=== PATIENT | female | born 1960 | race Two or more races ===

== ENCOUNTER 2025-07-11 15:50 | Inpatient (IN) | payer MEDICARE, SELFPAY ==
[2025-07-11] VITALS (7 sets, daily range): BP systolic 166–207; BP diastolic 71–98; PULSE 59–81; RESP 18–98; TEMP 36.1–36.9; O2SAT 96–98; BMI 28.3
--- NOTE | 2025-07-11 16:00 | XR_ITS ---
EXAMINATION: AP chest single view TECHNIQUE: Portable sitting AP chest single view Date and time: July 11 0 25, 1641 hours INDICATIONS: Stroke alert today FINDINGS: Normal heart size No aspiration pneumonia Mild vascular congestion. Severe osteopenia IMPRESSION: Mild vascular congestion No aspiration pneumonia
--- NOTE | 2025-07-11 16:00 | EKG_ITS ---
[facility] Test Date: 2025-07-11 Pat Name: DELLA BRADLEY Department: Room: - Gender: Female [employer] Reviewer: : 1960 Requested By: Tara Ruth Order Number: [id number] Reading MD: Tara Ruth Measurements Intervals [place] Rate: 71 P: 25 MI: 164 QRS: -20 QRSD: 116 T: 95 QT: 396 QTc: 431 Interpretive Statements SINUS RHYTHM LEFT VENTRICULAR HYPERTROPHY AND ST-T CHANGE [VOLTAGE CRITERIA PLUS ST/T ABNORMALITY] No previous ECG available for comparison /[id number]/[email or web address]/[id number].pdf
--- NOTE | 2025-07-11 16:01 | EDNOTE_ITS ---
Neuro Symptoms Deficit-RME/HPI General Chief Complaint: Weakness Stated Complaint: BLOOD SUGAR AT HOME 385, LEFT SIDED FACIAL DROOP Time Seen by Provider: 07/11/25 16:01 Arrival date/time: 07/11/25 15:50 RME / HPI RME / HPI Narrative: DR. MANLEY MAIN ED EVALUATION: 65-year-old female presents to the Emergency Department for evaluation of left facial droop. Per daughter, the patient was noted to be drowsy and less respo nsive than usual earlier today. The last known well time is unknown; daughter reports the patient appeared normal earlier in the morning, while the states she woke up with the facial droop. No history of trauma, seizure activity, or headache reported. Related Data Allergies Allergy/AdvReac Type Severity Reaction Status Date / Time No Known Allergies Allergy Verified 07/11/25 15:54 Review of Systems Review of Systems Systems Reviewed: All systems reviewed, normal except as documented Past Medical History Past Medical History CARDIAC: Positive Hypertension ENDOCRINE: Positive Diabetes Mellitus Type 2 Social History SMOKING STATUS: Never smoker SUBSTANCE USE: does not use ALCOHOL: Never ED Exam Narrative Physical exam: GENERAL APPEARANCE: alert and oriented, well-developed, well-nourished, no acute distress; left facial droop present VITALS: All vitals were reviewed and the pulse ox is 96% on room air, which is normal according to my interpretation. HEENT: Normocephalic, atraumatic; pupils equal, round, reactive to light; EOMI; mucous membranes pink, moist; oropharynx clear NECK: Supple LUNGS: CTABL; no wheezes, no rales, no rhonchi HEART: Regular rate, regular rhythm; normal S1, S2; no murmurs ABDOMEN: non distended; normal BS; soft, no tenderness, no guarding, no rebound; no masses, no organomegaly, no hernia BACK: no CVA tenderness EXTREMITIES: atraumatic; no edema NEUROLOGIC: awake; alert and oriented x4; left facial droop present PSYCHIATRIC: appropriate mood and affect SKIN: warm, dry, normal color; no rashes Course Course Course Narrative: 1558: Stroke alert initiated. Orders made at this time are congruent stroke protocol. Quality Measures none Orders Category Date Time Status Bedside Blood Glucose NOW Care 07/11/25 16:00 Completed Crushing Foreman NOW Care 07/11/25 16:00 Active Continuous Pulse Oximetry NOW Care 07/11/25 16:00 Completed EKG (ED ONLY) *Do not use* NOW Care 07/11/25 16:00 Completed In and Out Catheter NEEDED Care 07/11/25 16:00 Active Insert IV NOW Care 07/11/25 16:00 Active MRI Screening NOW Care 07/11/25 16:46 Active NIH Stroke Scale now Care 07/11/25 16:00 Active NPO NOW Care 07/11/25 16:00 Active Nurse Swallow Screen x1 Care 07/11/25 16:00 Active Consult to Neurology / Tele-Neurology Routine Cons 07/11/25 16:[address] angio stroke protocol Stat Exams 07/11/25 16:[address] stroke protocol Stat Exams 07/11/25 16:00 Completed EKG (ED Only) Stat Exams 07/11/25 16:00 Draft MR head/brain wo con Urgent Exams 07/11/25 Ordered XR chest 1V portable Stat Exams 07/11/25 16:00 Taken Alcohol, Blood Medical Stat Lab 07/11/25 16:06 Completed B-Type Natriuretic Peptide Stat Lab 07/11/25 16:06 Completed CBC Stat Lab 07/11/25 16:06 Completed Comprehensive Metabolic Panel Stat Lab 07/11/25 16:06 Completed Drug Screen,Urine Stat Lab 07/11/25 16:41 Completed Magnesium Stat Lab 07/11/25 16:06 Completed Partial Thromboplastin Time Stat Lab 07/11/25 16:06 Completed Prothrombin Time with INR Stat Lab 07/11/25 16:06 Completed Troponin I Stat Lab 07/11/25 16:06 Completed Urinalysis, C/S if Indicated Stat Lab 07/11/25 16:41 Completed Aspirin Med 07/11/25 16:45 Discontinued 325 mg PO X1 ONE Clopidogrel [Plavix] Med 07/11/25 16:45 Discontinued 300 mg PO X1 ONE Oxygen Delivery NOW RT 07/11/25 16:00 Active Vital Signs Vital signs: Vital Signs Pulse Rate 74 07/11/25 16:33 Respiratory Rate 18 07/11/25 16:33 Blood Pressure 207/87 H 07/11/25 16:33 Pulse Oximetry (%) 96 07/11/25 16:33 Oxygen Delivery Method Room Air 07/11/25 16:33 Neuro Symptoms / Deficit MDM Narrative MDM Narrative:: I, Leelee Dao am scribing for and in the presence of Dr. Manley. Patient data External records reviewed:: [facility] previous records Clinical information provided by:: patient and family Social determinants that could affect healthcare access:: none Patient has the following chronic illnesses:: No known PMHx, surgeries, daily medications, or known allergies. How is presenting disease/condition affected by chronic disease/condition?: no chronic disease Evaluation data The following diagnostics were reviewed and interpreted by me:: lab results, radiology exam(s) and EKG tracing(s) Lab and/or radiology exams considered but not ordered:: none Interpretation Summary: Procedure(s): CT stroke protocol Accession Number(s): [id number] cc: Mike Cerrato MD; Tara Manley MD~ Examination: CT brain head without contrast. 2-D sagittal coronal reconstructions Date and time of exam: July 11, 2025, 1610 hours INDICATIONS: Stroke alert, onset focal neurologic deficit including left-sided facial droop unsteadiness and weakness beginning this morning CTDI: vol (mGy): 48.1 DLP: (mGycm): 914 Technique: Multiple CT axial sections of the brain have been obtained, 5 mm slice thickness. Contrast has not been administered. 2-D sagittal, coronal reconstructions have been obtained Low dose protocols were performed. One or more of the following dose reduction techniques were used; automated exposure control, adjustment of the mA and/or KV according to patient size, use of iterative reconstruction technique. Findings: No significant ventricular enlargement. Small bilateral old appearing nonhemorrhagic infarcts in the basal ganglia but clinical correlation advised Intra-axial or extra-axial hemorrhage density is not seen. No mass effect or midline shift Basal cisterns are not remarkable. Fourth ventricle is midline. Cranial vault intact. Impression: Negative for acute hemorrhage, mass effect or midline shift Small bilateral old appearing nonhemorrhagic infarcts in the basal ganglia, but clinical correlation advised As clinically warranted, brain MRI follow-up would best assess for acute ischemic change Dictated By: Mike Cerrato MD Procedure(s): CT angio stroke protocol Accession Number(s): [id number] cc: Mike Cerrato MD; NO PRIMARY/FAMILY,PHYSICIAN; Tara Manley MD~ Examination: CTA carotids with intravenous contrast CTA brain, head with intravenous contrast. 2-D sagittal, coronal reconstructions. 3-D reconstructions. Exam date and time: July 11, 2025, 1639 hours INDICATIONS: Stroke alert, onset focal neurologic deficit today CTDI: vol (mGy) 17.2 DLP: (mGycm) 425 Technique: Multiple CTA axial brain, head carotid images post intravenous contrast injection 75 cc, [id number]. 2-D sagittal, coronal reconstructions. 3-D reconstructions, 3-D post processing including vascular maximum intensity projection images. Low dose protocols were performed. One or more of the following dose reduction techniques were used; automated exposure control, adjustment of the mA and/or KV according to patient size, use of iterative reconstruction technique. Findings: Bilateral subcentimeter thyroid nodules No significant common carotid carotid bifurcation or internal carotid artery stenoses Minimally dominant right vertebral artery in the neck with no critical stenoses Intracranial vertebral arteries basilar artery posterior cerebral branches fill with no large vessel occlusions Petrous juxtasellar and supraclinoid portions internal carotid arteries intact Middle cerebral M1 segments trifurcation vessels and anterior cerebral arteries demonstrate no large vessel occlusions IMPRESSION: No significant neck arterial stenoses No cerebral large vessel arterial occlusions or thrombus Dictated By: Mike Cerrato MD Medications / Prescriptions Medications or Prescriptions considered but not ordered:: none Medication administrations:: Medication Administration History Discontinued Medications Aspirin (Aspirin 325 Mg Tablet) 325 mg PO X1 ONE Stop: 07/11/25 16:46 Last Admin: 07/11/25 17:24 Dose: 325 mg Documented By: EF Clopidogrel Bisulfate (Clopidogrel Bisulfate 75 Mg Tablet) 300 mg PO X1 ONE Stop: 07/11/25 16:46 Last Admin: 07/11/25 17:23 Dose: 300 mg Documented By: EF see above if any Consultations Consultation(s) initiated? (list below): Yes Consultation #1 (Physician, Specialty, Details): Discussed test HPI, PMHx, lab, radiology results and/or management with the hospitalist. Will admit for further evaluation and management. Accepts patient for admission. Time: 17:52 Diagnosis Neuro Differential Diagnosis: other (Acute ischemic stroke, Souza's palsy, and intracranial hemorrhage.) Most likely diagnosis given after review of the tests above:: CVA Admission Indicated Admission indicated?: indicated Admission Request Was there a request for admission?: Yes Admission Attestation Admission request attestation: Discussed case with [] from Hospitalist service regarding admission. Discussed patients ED course, exam findings, labs, and radiology results. The Hospitalist [agrees,declines] to accept the patient for admission. Disposition Plan Disposition Plan: Admit Discharge Plan Plan Patient Disposition: Admit Acute Care w/in Hospital Prescriptions/Referrals Referrals: No Primary/Family,Physician [Primary Care Provider] - In 1 week Problem List Clinical Impression: CVA (cerebrovascular accident) Patient/Caregiver Discharge Instructions Print Language: Greek Stand Alone Forms: Brenda Award Info., Patient Portal Info Letter
[2025-07-11 16:32] LABS: Basophils # (Auto) 0.0 Thou/mm3 (0.0-0.2); Basophils % (Auto) 0 % (0-2.5); Eosinophils # (Auto) 0.1 Thou/mm3 (0.0-0.5); Eosinophils % (Auto) 1 % (0-10); Hematocrit 41.7 % (36.0-46.0); Hemoglobin 14.1 g/dL (12.0-16.0); Immature Granulocytes Auto 0.05 Thou/mm3 (0.00-0.00); Lymphocytes # (Auto) 2.7 Thou/mm3 (1.0-4.8); Lymphocytes % (Auto) 25 % (10-50); Mean Corpuscular HGB Conc 33.8 g/dl (31.0-37.0); Mean Corpuscular Hemoglobin 27.1 pg (25.0-35.0); Mean Corpuscular Volume 80 fL (80-100); Monocytes # (Auto) 0.9 Thou/mm3 (0.0-0.8); Monocytes % (Auto) 8 % (0-12); Neutrophils # (Auto) 7.2 Thou/mm3 (1.8-7.7); Neutrophils % (Auto) 66 % (37-80); Nucleated Red Blood Cell # 0.00 Thou/mm3 (0.00-0.00); Nucleated Red Blood Cell % 0 /100 WBC (0); Platelet Count 303 Thou/mm3 (140-440); RDW Standard Deviation 36.0 fL (36.4-46.3); Red Blood Count 5.21 Miln/mm3 (4.00-5.20); White Blood Count 11.0 Thou/mm3 (3.6-11.0)
[2025-07-11 16:41] LABS: INR 1.0 (0.9-1.3); Partial Thromboplastin Time 30.0 Seconds (22.0-36.0); Prothrombin Time 11.1 Seconds (9.0-12.2)
--- NOTE | 2025-07-11 16:47 | PD.TNEURO ---
Tele Neuro Consultation Consultation Date 07/11/25 Most Recent Vital Signs Last Vital Signs Pulse 77 07/11/25 16:33 Resp 18 07/11/25 16:33 BP 207/87 H 07/11/25 16:33 Pulse Ox 96 07/11/25 16:33 O2 Del Method Room Air 07/11/25 16:33 Laboratory-Coagulation Panel PT 11.1 Seconds (9.0-12.2) 07/11/25 16:06 INR 1.0 (0.9-1.3) 07/11/25 16:06 APTT 30.0 Seconds (22.0-36.0) 07/11/25 16:06 Consultation Narrative [facility] Patient Name:???Shea John Date of :???1960 Identification Number:??? Date of Service:???07/11/2025 16:05:35 Diagnosis:?I63.89 - Cerebrovascular accident (CVA) due to other mechanism ([facility]) Impression: ?65YOF with a PMHx of HTN, HLD, and DM2, presenting to the [place] ED in the setting of acute onset imbalance, L facial weakness, and subtle confusion. On exam, patient with notable L facial weakness, subtle confusion, difficulty w left and right differentiation, finger agnosia, concerning for an ischemic stroke involving the left parietal region. Of further concern is the fact that patient's CTH shows bilateral subacute appearing anterior basal ganglia ischemic strokes, and as such, principal concern involves either a cardioembolic etiology or multiple small vessel ischemic strokes within an narrow timeframe in setting of uncontrolled risk factors. Moving forward, recommend empirically treating as an acute stroke now, with recommendation for admission and stroke workup as well as risk factor management and modification. Our recommendations are outlined below. Recommendations: ? Stroke/Telemetry Floor ? Neuro Checks (Q4) ? Bedside Swallow Eval ? DVT Prophylaxis ? IV Fluids, Normal Saline ? Head of Bed 30 Degrees ? Euglycemia and Avoid Hyperthermia (PRN Acetaminophen) ? Bolus with Clopidogrel 300 mg bolus x1 and initiate dual antiplatelet therapy with Aspirin 81 mg daily and Clopidogrel 75 mg daily ?Antihypertensives PRN if Blood pressure is greater than 180/110 or there is a concern for End organ damage/contraindications for permissive HTN ?MRI brain wo con ?Lipid panel, TSH, A1C, B12 ?PT/OT/PATIENT ACCOUNT REPRESENTATIVE eval ?Transthoracic Echo w bubble study ?Infectious and metabolic workup per primary team Sign Out: ? Discussed with Emergency Department Provider Advanced Imaging: CTA Head and Neck Completed. LVO:No Patient is not a candidate for RAMAN Metrics: Last Known Well: 07/10/2025 18:00:00 Dispatch Time: 07/11/2025 16:05:35 Arrival Time: 07/11/2025 15:50:00 Initial Response Time: 07/11/2025 16:07:48Symptoms: Imbalance, L facial weakness, generalized weakness, subtle confusion. Initial patient interaction: 07/11/2025 16:10:41 NIHSS Assessment Completed: 07/11/2025 16:15:15Patient is not a candidate for Thrombolytic. Thrombolytic Medical Decision: 07/11/2025 16:15:16Patient was not deemed candidate for Thrombolytic because of following reasons: LKW outside 4.[address] Head: I personally reviewed all the CT images that were available to me and it showed: bilateral late subacute to early chronic anterior basal ganglia regions of hypodensity concerning for evolving subacute ischemic strokes with no evidence of intracranial hemorrhage Primary Provider Notified of Diagnostic Impression and Management Plan on: 07/11/2025 16:40:33 History of Present Illness:Patient is a 65 year old Female. Patient was brought by private transportation with symptoms of Imbalance, L facial weakness, generalized weakness, subtle confusion. 65YOF with a PMHx of HTN, HLD, and DM2, presenting to the [place] ED in the setting of acute onset imbalance, L facial weakness, and subtle confusion. Per patient, began feeling off balance evening of 07/10 at appx 1800, with sensation as though she was going to fall over yet without specific direction or preference. This persisted throughout the evening, and on waking today patient had ongoing imbalance, and on informing , noted that patient's face appeared asymmetric, and pointed out that she was drooling from the left side of her lips. Per daughter, no specific slurring or aphasia, yet patient was confused most of the day, with strange behavior such as trying to start her car without her keys and seeing slower than usual. No known history of strokes or seizures with no recent trauma or falls. Of note, oatient took her blood sugar this afternoon and initial reading 385. Past Medical History: ?Hypertension ?Diabetes Mellitus ?There is no history of Atrial Fibrillation ?There is no history of Stroke ?There is no history of Seizures Medications: No Anticoagulant use? No Antiplatelet use Reviewed EMR for current medications Allergies:? Reviewed Social History: Patient Is: Drug Use: No Family History: There is no family history of premature cerebrovascular disease pertinent to this consultation ROS : 14 Points Review of Systems was performed and was negative except mentioned in HPI. Past Surgical History: There Is No Surgical History Contributory To Today?s Visit Examination: BP(217/94),?Pulse(66),?Blood Glucose(334) 1A: Level of Consciousness - Alert; keenly responsive?+ 0 1B: Ask Month and Age - Could Not Answer Either Question Correctly?+ 2 1C: Blink Eyes & Squeeze Hands - Performs Both Tasks?+ 0 2: Test Horizontal Extraocular Movements - Normal?+ 0 3: Test Visual Xavier - No Visual Loss?+ 0 4: Test Facial Palsy (Use Grimace if Obtunded) - Minor paralysis (flat nasolabial fold, smile asymmetry)?+ 1 5A: Test Left Arm Motor Drift - No Drift for 10 Seconds?+ 0 5B: Test Right Arm Motor Drift - No Drift for 10 Seconds?+ 0 6A: Test Left Leg Motor Drift - No Drift for 5 Seconds?+ 0 6B: Test Right Leg Motor Drift - No Drift for 5 Seconds?+ 0 7: Test Limb Ataxia (FNF/Heel-Huizar) - No Ataxia?+ 0 8: Test Sensation - Normal; No sensory loss?+ 0 9: Test Language/Aphasia - Normal; No aphasia?+ 0 10: Test Dysarthria - Normal?+ 0 11: Test Extinction/Inattention - No abnormality?+ 0 NIHSS Score:?3 NIHSS Free Text :?Slight difficulty following commands. Trouble with L/R differentiation. Age: 35, Month: Sept Pre-Morbid Modified Alexander Scale: 1 Points = No significant disability despite symptoms; able to carry out all usual duties and activities Spoke with :?Dr Manley This consult was conducted in real time using interactive audio and video technology. Patient was informed of the technology being used for this visit and agreed to proceed. Patient located in hospital and provider located at home/office setting. Patient is being evaluated for possible acute neurologic impairment and high probability of imminent or life-threatening deterioration. I spent total of 25 minutes providing care to this patient, including time for face to face visit via telemedicine, review of medical records, imaging studies and discussion of findings with providers, the patient and/or family. Dr Jackson Gomez [facility] For Inpatient follow-up with [facility] physician please call [facility] at . As we are not an outpatient service for any post hospital discharge needs please contact the hospital for assistance. If you have any questions for the [facility] physicians or need to reconsult for clinical or diagnostic changes please contact us via [facility] at . Signature :Perry Gomez
[2025-07-11 16:49] LABS: Alanine Aminotransferase 12 U/L (10-49); Albumin, Serum 4.1 gm/dL (3.4-4.8); Albumin/Globulin Ratio 1.2 (1.2-2.2); Alcohol, Blood Medical < 3.0 mg/dL (0-10.0); Alkaline Phosphatase 124 U/L (46-116); Anion Gap 12 (7-16); Aspartate Amino Transferase 15 U/L (0-34); BUN/Creatinine Ratio 13 Ratio (12-20); Bilirubin,Total 0.4 mg/dL (0.3-1.2); Blood Urea Nitrogen 12 mg/dL (9-23); Calcium 9.4 mg/dL (8.3-10.6); Calcium (Corrected) 9.4 mg/dL (8.5-10.1); Carbon Dioxide 22.5 mMol/L (20.0-31.0); Chloride 99 mMol/L (98-107); Creatinine (Component) 0.9 mg/dL (0.6-1.3); Estimated Creatinine Clearance 55.0 mL/min (>60); Globulin 3.3 gm/dL (2.3-3.5); Glucose 359 mg/dL (74-106); Magnesium 1.9 mg/dL (1.6-2.6); Osmolality,Calculated 280 (275-295); Potassium 4.0 mMol/L (3.4-5.1); Sodium 133 mMol/L (136-145); Total Protein 7.4 gm/dL (5.7-8.2); Troponin I < 0.002 ng/mL (0.0-0.045); eGFR > 60 See Note
[2025-07-11 16:51] LABS: Collection Type, Urine Catheter
[2025-07-11 17:01] LABS: Bilirubin,Urine Negative (Negative); Blood,Urine Negative (Negative); Clarity,Urine Clear (Clear/Hazy); Color,Urine Colorless (Lt Yel-Yel); Culture Indicated,Urine Not Indicated; Glucose, Urine 3+ (Negative); Ketones,Urine Negative (Negative); Leukocyte Esterase,Urine Positive (Negative); Nitrite,Urine Negative (Negative); PH,Urine 6.5 (5.0-7.0); Protein,Urine Negative (Neg - Trace); RBC,Urine 1 /hpf (0-3); Specific Gravity,Urine 1.026 (1.001-1.035); Squamous Epithelial Cell,Urine 1 /hpf (0-5); Urobilinogen,Urine Negative mg/dL (0.0-1.0); WBC,Urine 9 /hpf (0-5)
[2025-07-11 17:10] LABS: Amphetamine/Methamp Scrn,U Negative (Negative); Barbiturate Screen,Urine Negative (Negative); Benzodiazepines Screen,Urine Negative (Negative); Benzoylecgonine Screen, Ur Negative (Negative); Fentanyl Screen,Urine Negative (Negative); Opiate Screen,Urine Negative (Negative); THC Screen,Urine Negative (Negative)
[2025-07-11] MEDS: CLOPIDOGREL BISULFATE 75 MG TABLET 300 MG PO (17:23)
[2025-07-11 17:35] LABS: B-Type Natriuretic Peptide 38 pg/mL (0-100)
--- NOTE | 2025-07-11 17:53 | PD.RESHP ---
Documentation for date of: 07/11/25 Senior resident attestation: Patient evaluated and examined at the bedside, plan of care discussed with rest of the team including my attending physician, except as noted. Patient is a 65-year-old female past medical history of diabetes mellitus type 2, and hypertension, who presented with left-sided facial droop and gait instability, symptoms started night prior to presentation, when she was confused and weak, next morning patient had recurrence of symptoms, she was unable to walk requiring help with ambulation and had confused speech. Patient was brought to the ER, stroke alert was called, noted to have blood pressure 207/87, pulse hypertensive urgency, CT head negative for hemorrhage but did show small bilateral old appearing nonhemorrhagic infarcts in basal ganglia, teleneurology was consulted recommended admitting the patient for workup of CVA. #Ischemic CVA?CT evidence of small bilateral old appearing nonhemorrhagic infarct in the left ganglia. Patient was loaded with aspirin and Plavix, currently on ASA, Plavix and statin. Permissive hypertension at this time, IV labetalol 10 mg added for SBP more than 180 , will get echocardiogram and MRI brain as well as neurology consult with their house neurologist Dr Amezcua tomorrow. Quresh PGY3 HPI History of Present Illness Chief complaint: L facial droop History of present illness: Shea Navaa 65F pmhx significant for HTN and NIDDM2 who presents with L sided facial droop and gait instability. Patient reports that yesterday she felt extremely fatigued with some confusion and gait instability per daughter at bedside. Denies any falls, head strike or loss of consciousness. No facial droop at the time. However this morning patient awoke with facial droop and confusion was more prominent, daughter describes patient unable to differentiate left between right as well as pressing on the gas while trying to drive before turning on the car. Denies similar symptoms in the past. Patient does endorse some left-sided weakness LLE>LUE. Patient denies chest pain, shortness of breath, fever, nausea vomiting or headache. Does not see video game tester. PMHx: as above Surgical Hx: Remote FHx: Noncontributory Social Hx: Denies tobacco, alcohol, or recreational/illicit drug use Allergies: NKDA Medications: Amlodipine 5 mg daily, lisinopril hydrochlorothiazide 20/12.5 twice daily. Metformin 500 mg twice daily, metoprolol tartrate 50 mg twice daily, Januvia 100 mg daily. In ED, BP 207/87, HR 74, RR 18, afebrile, satting 96% RA, Na 133, glucose 359, alk phos 124, trops and BNP neg, UA 3+ glucose, LE+, WBC 9. In ED, given ASA 325x1 and Plavix 300mg x1. CT head negative for acute hemorrhage mass effect or midline shift, small bilateral old appearing nonhemorrhagic infarcts in basal ganglia, CTA head and neck no significant negative stenosis or large vessel occlusion or thrombus, EKG sinus rhythm rate 71 QTc 431 left axis deviation no ST elevation or depression. Teleneurology consulted. Patient was admitted for further CVA workup. Review of Systems Review of Systems Systems Reviewed: All systems reviewed, normal except as documented Exam Vital Signs Temp Pulse Resp BP Pulse Ox O2 Del Method 98.4 F 66 18 194/98 H 96 Room Air 07/11/25 17:19 07/11/25 17:19 07/11/25 17:19 07/11/25 17:19 07/11/25 17:19 07/11/25 17:19 Narrative Exam GENERAL: AOx3, no acute distress HEENT: mucous membranes moist, bilateral sclera anicteric CARDIOVASCULAR: regular rate and rhythm, S1/S2 present, 3/6 systolic murmur PULMONARY: clear to auscultation bilaterally, no rales/rhonchi/wheezes ABDOMINAL: soft, non-tender, non-distended, no rebound/guarding, bowel sounds present EXTREMITIES: no peripheral edema SKIN: warm and dry, intact, no rashes NEURO: Orientation: AO x 3 Communication: Patient is cooperative and can follow simple instructions Language: Speech fluent, normal rate and volume, comprehension intact Cranial nerves: CN II: Visual clarke intact CN III: Pupils equal, round, and reactive to light CN III, IV, : No gaze deviation, no nystagmus Horizontal pursuit: intact Vertical pursuit: intact Ptosis: none CN V: Facial sensation to light touch intact bilaterally at the forehead, cheeks, and jaw line CN VII: L sided deviation of angle of mouth CN VIII: Able to hear and respond to conversation at normal volume CN IX, X: Palate elevation symmetric, uvula midline CN XI: Head turn and shoulder shrug strong, symmetric bilaterally CN XII: Normal tongue protrusion without deviation, no fasciculations Motor: Normal bulk and tone No atrophy No abnormal movements or fasciculations Muscle strength: Shoulder abduction: R 5/5 L 5/5 Elbow flexion: R 5/5 L 5/5 Elbow extension: R 5/5 L 5/5 Hip flexion: R 5/5 L 5/5 Hip extension: R 5/5 L 5/5 Knee flexion: R 5/5 L 5/5 Knee extension: R 5/5 L 5/5 Plantarflexion: R 5/5 L 4/5 Cerebellum: RUE and LUE: No dysmetria (finger to nose) Results: Labs 07/12/25 05:25 07/12/25 05:25 Labs: Short CBC 07/11/25 Range/Units 16:06 WBC 11.0 (3.6-11.0) Thou/mm3 Hgb 14.1 (12.0-16.0) g/dL Hct 41.7 (36.0-46.0) % Plt Count 303 (140-440) Thou/mm3 BMP 07/11/25 16:06 Sodium 133 L Potassium 4.0 Chloride 99 Carbon Dioxide 22.5 BUN 12 Creatinine 0.9 Glucose 359 H Calcium 9.4 Cardiac Enzymes 07/11/25 Range/Units 16:06 Troponin I < 0.002 (0.0-0.045) ng/mL Liver Function 07/11/25 Range/Units 16:06 Total Bilirubin 0.4 (0.3-1.2) mg/dL AST 15 (0-34) U/L ALT 12 (10-49) U/L Alkaline Phosphatase 124 H (46-116) U/L Albumin 4.1 (3.4-4.8) gm/dL Urine 07/11/25 Range/Units 16:41 Urine Color Colorless A (Lt Yel-Yel) Urine Clarity Clear (Clear/Hazy) Urine pH 6.5 (5.0-7.0) Ur Specific [place] 1.026 (1.001-1.035) Urine Protein Negative (Neg - Trace) Urine Glucose (UA) 3+ A (Negative) Quality Measures Quality Measures none Advance care planning discussed with:: patient Medications Home Medications and Allergies Home Medications ?Medication ?Instructions ?Recorded ?Confirmed ?Type amlodipine 5 mg tablet 5 mg PO QDAY 07/12/25 07/12/25 History lisinopril 20 1 tab PO BID 07/12/25 07/12/25 History mg-hydrochlorothiazide 12.5 mg tablet metformin 500 mg tablet 500 mg PO .BID W/ MEALS 07/12/25 07/12/25 History metoprolol tartrate 50 mg tablet 50 mg PO .BID W/MEALS 07/12/25 07/12/25 History sitagliptin phosphate 100 mg 100 mg PO QDAY 07/12/25 07/12/25 History tablet (Januvia) Allergies Allergy/AdvReac Type Severity Reaction Status Date / Time No Known Allergies Allergy Verified 07/11/25 15:54 Visit Medications Discontinued Medications Aspirin (Aspirin 325 Mg Tablet) 325 mg PO X1 ONE Stop: 07/11/25 16:46 Last Admin: 07/11/25 17:24 Dose: 325 mg Clopidogrel Bisulfate (Clopidogrel Bisulfate 75 Mg Tablet) 300 mg PO X1 ONE Stop: 07/11/25 16:46 Last Admin: 07/11/25 17:23 Dose: 300 mg Assessment & Plan Plan Shea John 65F pmhx significant for HTN and NIDDM2 who presents to [facility] ED 07/11 with L sided facial droop and gait instability, admitted for CVA workup. #CVA r/o #L facial droop Confusion and gait instability starting 07/09, woke up 07/10 with new L facial droop with continued confusion and gait instability. Positive difficulty with L and R differentiation. No hx of stroke, afib or DVT. CT head negative for acute hemorrhage mass effect or midline shift, small bilateral old appearing nonhemorrhagic infarcts in basal ganglia, CTA head and neck no significant negative stenosis or large vessel occlusion or thrombus, EKG sinus rhythm rate 71 QTc 431 left axis deviation no ST elevation or depression s/p loading ASA and loading Plavix in ED Plan: - Teleneurology consulted: telemetry, neuro q4 checks, aspiration precautions - ASA 81 mg QD, Plavix 75 mg QD and atorvastatin 80 mg QD - F/u MRI brain, TTE with bubble, lipid panel, A1c, TSH, B12 - NPO for now until passes bedside swallow - PT and DEPARTMENT STORE GENERAL MANAGER consulted - IV labetalol 10 mg q6h prn if SBP>185 and/or DSP >110 - Permissive HTN at this time #HTN On amlodipine 5 mg daily, lisinopril hydrochlorothiazide 20/12.5 twice daily, metoprolol tartrate 50 mg twice daily at home Plan: - Hold all antihypertensives for now #NIDDM2 Home metformin 500 mg twice daily and Januvia 100 mg daily. Plan: - SSI step [address] Hospital management: Lines: PIV Diet: NPO until pass swallow, then carb consistent Bowel: senna prn GI prophylaxis: not indicated DVT prophylaxis: SCDs Disposition: tele, pending complete CVA workup CODE STATUS: DNR Plan of care discussed with attending Dr. Street, and PGY-3 Dr. Landis. Antonia Crouch, DO PGY-1 Internal Medicine Attending Provider Attestation/Addendum I have seen and examined the patient. I was physically present for the alonso portions of the services provided including history, physical exam, diagnosis, treatment plans and orders. I agree with assessment and plan of care as documented by residents. After examination of the patient and review of the clinical data I feel that this patient needs admission to the hospital for further treatment/evaluation. Even though this this note was carefully revised there may still be minor errors in executive chef assistant due to voice recognition software. Davina Street MD
--- NOTE | 2025-07-11 18:06 | ECHO_ITS ---
Transthoracic Echo Report Ht (in): 61 Wt (lb): 150 Exam Location: Echo Lab Status: Inpatient Air Crew Officer: Amanda Lassiter Indications: Procedure Performed: BP: 131 / 66 HR: 58 MEASUREMENTS (Male / Female) Normal Values 2D ECHO LV Diastolic Diameter PLAX 4.2 cm 4.2 - 5.9 / 3.9 - 5.3 cm LV Systolic Diameter PLAX 3.0 cm IVS Diastolic Thickness 1.0 cm 0.6 - 1.0 / 0.6 - 0.9 cm LVPW Diastolic Thickness 1.2 cm 0.6 - 1.0 / 0.6 - 0.9 cm LV Relative Wall Thickness 0.5 LVOT Diameter 1.5 cm Aortic Root Diameter 2.7 cm LA Systolic Diameter LX 3.1 cm 3.0 - 4.0 / 2.7 - 3.8 cm LV Ejection Fraction MOD BP 55.9 % >= 55 % LV Cardiac Index MOD BP 1984.6 cm?/min?m? LV Ejection Fraction MOD 4C 65.5 % LV Cardiac Index MOD 4C 2653.9 cm?/min?m? LV Ejection Fraction 4C AL 66.6 % LV Cardiac Index 4C AL 2890.1 cm?/min?m? LV Ejection Fraction MOD 2C 43.4 % LV Cardiac Index MOD 2C 1291.8 cm?/min?m? LV Ejection Fraction 2C AL 44.8 % LV Cardiac Index 2C AL 1364.3 cm?/min?m? LA Volume Index 27.2 cm?/m? 16 - 28 cm?/m? DOPPLER AV Peak Velocity 319.7 cm/s AV Peak Gradient 40.9 mmHg AV Mean Gradient 26.0 mmHg AV Velocity Time Integral 78.1 cm AI Peak Velocity 378.0 cm/s AI Peak Gradient 57.2 mmHg AI Pressure Half Time 914.0 ms LVOT Peak Velocity 117.0 cm/s LVOT Peak Gradient 5.5 mmHg LVOT Velocity Time Integral 28.9 cm LVOT Cardiac Index 1709.2 cm?/min?m? AV Area Cont Eq vti 0.7 cm? AV Area Cont Eq pk 0.6 cm? MV Area PHT 2.4 cm? Mitral E Point Velocity 72.3 cm/s Mitral A Point Velocity 126.0 cm/s Mitral E to A Ratio 0.6 LV E' Lateral Velocity 5.5 cm/s Mitral E to LV E' Lateral Ratio 13.0 LV E' Septal Velocity 4.3 cm/s Mitral E to LV E' Septal Ratio 16.6 PV Peak Velocity 78.7 cm/s PV Peak Gradient 2.5 mmHg FINDINGS Left Ventricle Normal left ventricular size, wall thickness, systolic function with no obvious regional wall motion abnormalities.The ejection fraction is visually estimated at 55%. There is grade I diastolic dysfunction of the left ventricle (impaired relaxation pattern). Right Ventricle The right ventricle is normal in size and systolic function. Left Atrium The left atrium is normal by two-dimensional, color flow and Doppler imaging with no structural abnormalities, no thrombus formation present. Right Atrium The right atrium is normal by two-dimensional imaging, color flow and Doppler imaging with no structural abnormalities, no thrombus formation present. Atrial Septum The interatrial septum appears normal with no evidence of a shunt. Aorta The aorta is normal by two-dimensional, color flow and Doppler interrogation. Mitral Valve Mild mitral annular calcification. Aortic Valve [id number] aortic valve regurgitation. Moderate aortic valve stenosis. Tricuspid Valve The tricuspid valve is normal by two-dimensional, color flow and Doppler interrogation. There is trace tricuspid valve regurgitation. Pulmonic Valve The pulmonic valve is not well visualized. There is no significant pulmonic valve regurgitation. Vessels The pulmonary artery appears normal. The inferior vena cava pulmonary and hepatic veins appear normal. Pericardium The pericardium is normal by two-dimensional imaging. There is no significant pericardial effusion. CONCLUSIONS Indication: Stroke echo with bubble study Negative bubble study. No evidence of PFO Moderate calcific aortic valve stenosis Vmax 3.3 m/sec Peak Gradient 40 mm hg, mean Gradient 24 mm Hg Mild aortic regurgitation Normal LV size and wall thickness. Estimated EF at 55%. There is grade I diastolic dysfunction. The RV is normal in size and systolic function. Trace mitral and trace tricuspid regurgitation Socorro Fowler (Electronically Signed) Final Date: 12 July 2025 19:08
[2025-07-11] MEDS: LABETALOL INJ 5 MG/ML VIAL 20 ML 10 MG IVP (18:36)
--- NOTE | 2025-07-11 19:30 | EVENTNT_ITS ---
Documentation for date of: 07/11/25 Event Note Event Note: Ms. John expressed to the nurse in the ED that she wanted to be full code. At this time, nurse called me and I spoke with the patient and her at bedside. Risks and benefits of CPR and intubation were discussed. Patient e xpressed full understanding of her decision and has the capacity to make this change in code status. Code status was changed to full code in the EMR. Odalis Dubon MD PGY1
[2025-07-11] MEDS: INSULIN LISPRO (AdmeLOG) 1 UNIT/0.01 ML UNIT 5 UNIT SC (23:59)
[2025-07-12] VITALS (8 sets, daily range): BP systolic 131–183; BP diastolic 66–90; PULSE 58–80; RESP 16–98; TEMP 36.1–36.2; O2SAT 95–98; BMI 27.8
--- NOTE | 2025-07-12 | XR_ITS ---
Examination: MRI brain without intravenous contrast. Date and time of exam: July 12, 2025, 1118 hours INDICATIONS: Stroke alert July 11, 2025, onset focal neurologic deficit including left facial droop Technique: Multiple axial and sagittal images of the brain obtained. Siemens high-resolution 1.5 Miriam short bore scanners utilized. Sagittal sections, T1-weighted, TR 500, TE 14, are performed. Axial sections proton-density and T2-weighted have been obtained. Inversion recovery axial images, TR 9, 260, TE 111, TI 2500. Diffusion weighted images, axial sections, TR 4800, TE 128, B value 1000 Axial sections, ADC map, TR 4800, TE 128 Findings: Enlargement of the sella turcica is not present. The optic chiasm and infundibular are not remarkable. Prepontine and interpeduncular cisterns are not enlarged. There is no localized enlargement of the medulla or forrest. Fourth ventricle and cerebellar tonsils appear normal in position. No subacute area of hemorrhage density is seen. Mass in the cerebellopontine angle region is not evident. Globes symmetrical. Orbital musculature including medial lateral rectus muscles do not exhibit abnormality. Diffusion-weighted images demonstrate multiple foci restricted diffusion right basal ganglia right caudate nucleus. Increased white matter signal prominent Mass effect upon the ventricular system is not identified. Impression: Multiple acute infarcts right basal ganglia right caudate nucleus
--- NOTE | 2025-07-12 05:05 | EKG_ITS ---
[facility] Test Date: 2025-07-12 Pat Name: DELLA BRADLEY 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
[2025-07-12] MEDS: Magnesium Sulfate 2 GM Ivpb 2 GM/50 ML BAG IV (05:21)
[2025-07-12 07:01] LABS: Basophils # (Auto) 0.0 Thou/mm3 (0.0-0.2); Basophils % (Auto) 0 % (0-2.5); Eosinophils # (Auto) 0.1 Thou/mm3 (0.0-0.5); Eosinophils % (Auto) 2 % (0-10); Hematocrit 38.5 % (36.0-46.0); Hemoglobin 13.0 g/dL (12.0-16.0); Immature Granulocytes Auto 0.02 Thou/mm3 (0.00-0.00); Lymphocytes # (Auto) 2.2 Thou/mm3 (1.0-4.8); Lymphocytes % (Auto) 31 % (10-50); Mean Corpuscular HGB Conc 33.8 g/dl (31.0-37.0); Mean Corpuscular Hemoglobin 26.9 pg (25.0-35.0); Mean Corpuscular Volume 80 fL (80-100); Monocytes # (Auto) 0.8 Thou/mm3 (0.0-0.8); Monocytes % (Auto) 11 % (0-12); Neutrophils # (Auto) 4.1 Thou/mm3 (1.8-7.7); Neutrophils % (Auto) 56 % (37-80); Nucleated Red Blood Cell # 0.00 Thou/mm3 (0.00-0.00); Nucleated Red Blood Cell % 0 /100 WBC (0); Platelet Count 263 Thou/mm3 (140-440); RDW Standard Deviation 36.2 fL (36.4-46.3); Red Blood Count 4.83 Miln/mm3 (4.00-5.20); White Blood Count 7.3 Thou/mm3 (3.6-11.0)
[2025-07-12 07:23] LABS: Glucose Estimated Average 355 mg/dL (80-131); Hemoglobin A1C 14.0 % Hgb (4.8-6.0)
[2025-07-12 07:33] LABS: Alanine Aminotransferase 11 U/L (10-49); Albumin, Serum 3.6 gm/dL (3.4-4.8); Albumin/Globulin Ratio 1.2 (1.2-2.2); Alkaline Phosphatase 90 U/L (46-116); Anion Gap 13 (7-16); Aspartate Amino Transferase 14 U/L (0-34); BUN/Creatinine Ratio 13 Ratio (12-20); Bilirubin,Total 0.5 mg/dL (0.3-1.2); Blood Urea Nitrogen 9 mg/dL (9-23); Calcium 9.1 mg/dL (8.3-10.6); Calcium (Corrected) 9.4 mg/dL (8.5-10.1); Carbon Dioxide 25.4 mMol/L (20.0-31.0); Cardiac Risk Estimate 6.3 RATIO (3.7-5.6); Chloride 101 mMol/L (98-107); Cholesterol 190 mg/dL (132-200); Creatinine (Component) 0.7 mg/dL (0.6-1.3); Estimated Creatinine Clearance 70.1 mL/min (>60); Globulin 3.0 gm/dL (2.3-3.5); Glucose 228 mg/dL (74-106); HDL Cholesterol 30 mg/dL (40-60); LDL Cholesterol,Calculated 122 mg/dL (0-130); Magnesium 1.6 mg/dL (1.6-2.6); Osmolality,Calculated 283 (275-295); Potassium 3.2 mMol/L (3.4-5.1); Sodium 139 mMol/L (136-145); Thyroid Stimulating Hormone 1.70 uIU/mL (0.55-4.78); Total Protein 6.6 gm/dL (5.7-8.2); Triglycerides 188 mg/dL (30-150); Vitamin B12 > 2000 pg/mL (211-911); eGFR > 60 See Note
[2025-07-12] MEDS: INSULIN LISPRO (AdmeLOG) 1 UNIT/0.01 ML UNIT SC ×3 (07:36→17:23)
--- NOTE | 2025-07-12 08:02 | EKG_ITS ---
[facility] Test Date: 2025-07-12 Pat Name: DELLA BRADLEY [facility] Reporting Process Consultant: YING : 1960 Requested By: Antonia Crouch Order Number: [id number] Reading MD: Antonia Crouch Measurements Intervals [place] Rate: 62 P: -14 MS: 141 QRS: -16 QRSD: 110 T: 157 QT: 426 QTc: 434 Interpretive Statements SINUS RHYTHM WITH SINUS ARRHYTHMIA ST DEVIATION AND MODERATE T-WAVE ABNORMALITY, CONSIDER ANTEROLATERAL ISCHEMIA Compared to ECG 07/12/2025 05:21:32 No significant changes /store/S0/[id number]
[2025-07-12] MEDS: CLOPIDOGREL BISULFATE 75 MG TABLET PO (09:35)
[2025-07-12] MEDS: INSULIN DEGLUDEC 5 UNIT/0.05 ML (PER 5 UNITS) 10 UNIT SC (09:35)
[2025-07-12] MEDS: ASPIRIN EC 81 MG TABEC PO (09:35)
--- NOTE | 2025-07-12 09:44 | ESPR_ITS ---
<Statement entered by Onofre Montes MD - 07/12/25 13:57> I have reviewed the note and agree with the resident's assessment & plan with exceptions as below. I have personally reviewed labs, imaging, home meds/prior records, examined the patient, formulated and discussed management plan with my attending Patient was seen and evaluated at bedside this morning. No overnight. Still some left facial droop with left acute events nasal fold flattening. Patient walk with PT without any issues I recommend outpatient physical therapy. Patient's MRI did show multiple acute infarcts in the right basal ganglia and the right caudate nucleus. Still pending echo. 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 Documentation for date of: 07/12/25 Subjective Subjective Interval history: Overnight, patient expressed CODE STATUS to be full code. Glucose elevated received to lispro 5 units. EKG showed inverted T waves magnesium 2 g were given. Patient seen examined at bedside with . Patient reports overall feeling better than yesterday, denies any weakness or sensation loss. However per at bedside, patient's mood has been low. Vitals and labs reviewed. SBP 130s to 160. Potassium 3.3 repleted with 40 mEq, creatinine 0.7, glucose 228, A1c 14, triglycerides 188, cholesterol 190, LDL 122, HDL 30. EKG shows T wave inversions in V3-6, however patient is asymptomatic. MRI shows multiple acute infarcts right basal failure right caudate nucleus. Pending TTE. Continue aspirin, Plavix and atorvastatin. Neurology and PT consulted. Exam Vital Signs Temp Pulse Resp BP Pulse Ox O2 Del Method 97.0 F 64 18 162/72 H 95 Room Air 07/12/25 08:00 07/12/25 08:00 07/12/25 08:00 07/12/25 08:00 07/12/25 08:00 07/12/25 08:00 Narrative Exam GENERAL: AOx3, no acute distress HEENT: mucous membranes moist, bilateral sclera anicteric CARDIOVASCULAR: regular rate and rhythm, S1/S2 present, 3/6 systolic murmur PULMONARY: clear to auscultation bilaterally, no rales/rhonchi/wheezes ABDOMINAL: soft, non-tender, non-distended, no rebound/guarding, bowel sounds present EXTREMITIES: no peripheral edema SKIN: warm and dry, intact, no rashes NEURO: Orientation: AO x 3 Communication: Patient is cooperative and can follow simple instructions Language: Speech fluent, normal rate and volume, comprehension intact Cranial nerves: CN II: Visual clarke intact CN III: Pupils equal, round, and reactive to light CN III, IV, : No gaze deviation, no nystagmus Horizontal pursuit: intact Vertical pursuit: intact Ptosis: none CN V: Facial sensation to light touch intact bilaterally at the forehead, cheeks, and jaw line CN VII: L sided deviation of angle of mouth CN VIII: Able to hear and respond to conversation at normal volume CN IX, X: Palate elevation symmetric, uvula midline CN XI: Head turn and shoulder shrug strong, symmetric bilaterally CN XII: Normal tongue protrusion without deviation, no fasciculations Motor: Normal bulk and tone No atrophy No abnormal movements or fasciculations Muscle strength: Shoulder abduction: R 5/5 L 5/5 Elbow flexion: R 5/5 L 5/5 Elbow extension: R 5/5 L 5/5 Hip flexion: R 5/5 L 5/5 Hip extension: R 5/5 L 5/5 Knee flexion: R 5/5 L 5/5 Knee extension: R 5/5 L 5/5 Plantarflexion: R 5/5 L 4/5 Cerebellum: RUE and LUE: No dysmetria (finger to nose) Objective Labs 07/12/25 05:25 07/12/25 05:25 Labs: Laboratory Results - last 24 hr 07/11/25 07/11/25 07/12/25 16:06 16:41 05:25 WBC 11.0 7.3 RBC 5.21 H 4.83 Hgb 14.1 13.0 Hct 41.7 38.5 MCV 80 80 MCH 27.1 26.9 MCHC 33.8 33.8 RDW Std Deviation 36.0 L 36.2 L Plt Count 303 263 D Neut % (Auto) 66 56 Lymph % (Auto) 25 31 [place] % (Auto) 8 11 Eos % (Auto) 1 2 Baso % (Auto) 0 0 Neut # (Auto) 7.2 4.1 Lymph # (Auto) 2.7 2.2 [place] # (Auto) 0.9 H 0.8 Eos # (Auto) 0.1 0.1 Baso # (Auto) 0.0 0.0 Immature Gran # (Auto) 0.05 H 0.02 H Absolute Nucleated RBC 0.00 0.00 Immature Gran % 1 H 0 Nucleated RBC % 0 0 PT 11.1 INR 1.0 APTT 30.0 Sodium 133 L 139 Potassium 4.0 3.2 L D Chloride 99 101 Carbon Dioxide 22.5 25.4 Anion Gap 12 13 BUN 12 9 Creatinine 0.9 0.7 Estim Creat Clear Calc 55.0 L 70.1 eGFR > 60 > 60 BUN/Creatinine Ratio 13 13 Glucose [address] Glu mg/dL 355 H Hemoglobin A1c 14.0 H Calculated Osmolality 280 283 Calcium 9.4 9.1 Corrected Calcium 9.4 9.4 Magnesium 1.9 1.6 Total Bilirubin 0.4 0.5 AST 15 14 ALT 12 11 Alkaline Phosphatase 124 H 90 D Troponin I < 0.002 B-Natriuretic Peptide 38 Total Protein 7.4 6.6 Albumin 4.1 3.6 D Globulin 3.3 3.0 Albumin/Globulin Ratio 1.2 1.2 Triglycerides 188 H Cholesterol 190 LDL Cholesterol, Calc 122 HDL Cholesterol 30 L Cholesterol/HDL Ratio 6.3 H Vitamin B12 > 2000 H TSH 1.70 Ur Collection Type Catheter Urine Color Colorless A Urine Clarity Clear Urine pH 6.5 Ur Specific [place] 1.026 Urine Protein Negative Urine Glucose (UA) 3+ A Urine Ketones Negative Urine Blood Negative Urine Nitrite Negative Urine Bilirubin Negative Urine Urobilinogen (Auto) Negative Ur Leukocyte Esterase Positive Urine RBC 1 Urine WBC 9 H Ur Squamous Epith Cells 1 Urine Bacteria None Ur Culture Indicated? Not Indicated Urine Opiates Screen Negative Urine Fentanyl Screen Negative Ur Barbiturates Screen Negative U Amphetamin/Meth Scrn Negative U Benzodiazepines Scrn Negative U Cocaine Metab Screen Negative U Marijuana (THC) Screen Negative Ethyl Alcohol < 3.0 Quality Measures Quality Measures none Advance care planning discussed with:: patient Assessment & Plan Assessment Current Active Medications: Generic Name Dose Route Start Last Admin Trade Name Freq PRN Reason Stop Dose Admin Acetaminophen 650 mg 07/11/25 17:57 Acetaminophen 325 Mg Tablet PO 08/10/25 17:56 Q6H PRN Fever >100.4 or pain Aspirin 81 mg 07/12/25 09:00 07/12/25 09:35 Aspirin Ec 81 Mg Tabec PO 08/11/25 08:59 81 mg QDAY JABIER Administration Atorvastatin Calcium 80 mg 07/12/25 21:00 Atorvastatin Calcium 20 Mg Tablet PO 08/11/25 20:59 HS JABIER Clopidogrel Bisulfate 75 mg 07/12/25 09:00 07/12/25 09:35 Clopidogrel Bisulfate 75 Mg Tablet PO 08/11/25 08:59 75 mg QDAY JABIER Administration Dextrose 25 ml 07/11/25 18:18 Dextrose 50%-Water Inj 50 Ml Syringe IV 08/10/25 18:17 Q15MIN PRN BG 50-70 responsive npo pt Dextrose 50 ml 07/11/25 18:18 Dextrose 50%-Water Inj 50 Ml Syringe IV 08/10/25 18:17 Q15MIN PRN BG <50 OR BG <70 & pt unresponsive Glucagon 1 mg 07/11/25 18:18 Glucagon Inj 1 Mg Vial IM Q15MIN PRN BG <70, and no IV access Insulin Degludec 10 unit 07/12/25 09:00 07/12/25 09:35 Insulin Degludec 5 Unit/0.05 Ml (Per 5 Units) SC 08/11/25 08:59 10 unit QDAY JABIER Administration Insulin Human Lispro 0 unit 07/12/25 07:50 Insulin Lispro (Admelog) 1 Unit/0.01 Ml Unit SC 08/11/25 07:29 AC JABIER Protocol Labetalol HCl 10 mg 07/11/25 18:17 07/11/25 18:36 Labetalol Inj 5 Mg/Ml Vial 20 Ml IVP 08/10/25 18:29 10 mg Q6HR PRN Administration SBP > 185 Ondansetron HCl 4 mg 07/11/25 17:57 Ondansetron Inj 2 Mg/Ml Inj 2 Ml IVP 08/10/25 17:56 Q6H PRN NAUSEA OR VOMITING Protocol Sennosides 1 tab 07/11/25 17:57 Senna Tablet PO 08/10/25 17:56 QDAY PRN constipation Protocol Plan Shea John 65F pmhx significant for HTN and NIDDM2 who presents to [facility] ED 07/11 with L sided facial droop and gait instability, admitted for multiple acute infarcts R basal ganglia and R caudate nucleus. #Multiple acute infarcts R basal ganglia and R caudate nucleus #L facial droop Confusion and gait instability starting 07/09, woke up 07/10 with new L facial droop with continued confusion and gait instability. Positive difficulty with L and R differentiation. No hx of stroke, afib or DVT. TSH wnl, B12>2000 CT head negative for acute hemorrhage mass effect or midline shift, small bilateral old appearing nonhemorrhagic infarcts in basal ganglia, CTA head and neck no significant negative stenosis or large vessel occlusion or thrombus, EKG sinus rhythm rate 71 QTc 431 left axis deviation no ST elevation or depression s/p loading ASA and loading Plavix in ED Plan: - Teleneurology consulted: telemetry, neuro q4 checks, aspiration precautions - Neurology consulted - ASA 81 mg QD, Plavix 75 mg QD and atorvastatin 80 mg QD - F/u TTE with bubble - PT consulted - LEAD REFINER: continue current diet, no further ST warranted - IV labetalol 10 mg q6h prn if SBP>185 and/or DSP >110 - New T wave inversions seen on EKG, however patient denies chest pain or anginal equivalents, will continue to monitor - Permissive HTN #HTN On amlodipine 5 mg daily, lisinopril hydrochlorothiazide 20/12.5 twice daily, metoprolol tartrate 50 mg twice daily at home Plan: - Hold all antihypertensives for now #NIDDM2 Home metformin 500 mg twice daily and Januvia 100 mg daily. a1c 14. trig 188, cholesterol 190, LDL 122, HDL 38. Plan: - SSI step [address] - Degludac 10u Hospital management: Lines: PIV Diet: carb consistent Bowel: senna prn GI prophylaxis: not indicated DVT prophylaxis: SCDs Disposition: tele, pending complete CVA workup CODE STATUS: DNR Plan of care discussed with attending Dr. Street, and PGY-2 Dr. Panda. Antonia Crouch, DO PGY-1 Internal Medicine Attending Provider Attestation/Addendum I have seen and examined the patient. I was physically present for the alonso portions of the services provided including history, physical exam, diagnosis, treatment plans and orders. I agree with assessment and plan of care as documented by residents. Patient seen and examined at bedside this morning. Appears comfortable and denies any new complaints. Vital signs are stable except for hypertension. Overnight, patient wished to change her CODE STATUS to full code. Continues to have mild left-sided facial droop, is alert and awake, able to answer questions and follow commands appropriately. Noted T wave inversion in EKG, patient received IV magnesium. Underwent MRI, showed multiple acute infarcts in the right basal ganglia and the right caudate nucleus. Underwent PT evaluation, recommended outpatient physical therapy. Continues to be on dual antiplatelets and statin. Speech therapy evaluation was completed, patient tolerating diet well. We will resume antihypertensives after 24 hours of permissive hypertension. Started on degludec 10 along with sliding scale for diabetes. Awaiting in-house neurology recommendation and echocardiography results. 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 Davina Street MD
--- NOTE | 2025-07-12 12:06 | PC.SS ---
Patient is alert/oriented. Patient was able to verify demographics. Patient was admitted for left facial droop. Patient is Georgian speaking only. Patient's wanted to interpret. Spouse states they reside together and patient is independent with ADL's. No DME. Patient follows with Dr. Estrella at [facility]. Last appt was last week. Patient pharmacy: [facility]. Patient drives herself to appointments. Patient worked with PT today. PT recommended HH services and a rollator walker. Patient pending clearance from Neurology. Discharge plan is to return home. Alt medical decision maker: , Benji Alex,
--- NOTE | 2025-07-12 15:13 | PC.PT ---
PT eval only. Patient is xI with bed mobility, transfers, and ambulation with no AD. Patient is safe to ambulate to the bathroom and in the halls with 1 staff and no AD. RN made aware.
--- NOTE | 2025-07-12 16:39 | PC.SS ---
Patient needs a rollator walker The diagnosis creates mobility limitation that significantly impairs ability to participate in the patients activities of daily living either in their entirety, or in a reasonable time frame. Also the patient is able to safely use the walker and the patient?s mobility is sufficiently resolved with the use of the walker and cane has been ruled out.
[2025-07-12] MEDS: ATORVASTATIN CALCIUM 20 MG TABLET 80 MG PO (20:18)
--- NOTE | 2025-07-12 21:51 | ESPR_ITS ---
Documentation for date of: 07/12/25 Subjective Subjective Interval history: Patient examined at bedside. Vitals are stable, chemistry panel remarkable for mild hypokalemia potassium 3.2. Glucose this morning 228. A1c 14.0, triglycerides 188, cholesterol 190, LDL 122, TSH 1.70. On CT head noted to have old basal ganglial infarcts. Per review with neurology appear to be subacute. CT head neck negative for any LVO or severe stenosis. MRI positive for acute infarcts in right basal ganglia with white matter changes. Patient and family at bedside were counseled on these findings. Patient to continue aspirin and Plavix for 21 days. After 21 days continue Plavix alone along with atorvastatin 80 mg daily. Instructed on blood pressure control outpatient as well as sugar control to decrease risk factors for future TIA/stroke. Exam Vital Signs Temp Pulse Resp BP Pulse Ox O2 Del Method 97.1 F 65 23 H 183/88 H 95 Room Air 07/12/25 20:00 07/12/25 20:00 07/12/25 20:00 07/12/25 20:00 07/12/25 20:00 07/12/25 20:00 Narrative Exam GENERAL APPEARANCE: Well hydrated, well-nourished in no acute distress. HEENT: Normocephalic, atraumatic, extraocular movements intact. Pupils: Equal reacting to light and accommodation NECK: Supple, no JVD or bruits. CARDIOVASULAR: Heart: S1, S2 heard, regular without S3-S4 or murmur no rubs or gallops. LUNGS/CHEST: Clear to auscultation bilaterally. No rails, rhonchi, or wheezing. Normal inspection. ABDOMEN: Soft, nontender, with normal bowel sounds. No pulsatile masses. No rebound, rigidity, or guarding. Normal inspection and palpation. EXTREMITIES: Normal inspection and palpation. No edema, clubbing or cyanosis. SKIN: Warm and dry without rashes. Normal inspection. MUSCULOSKELETAL: No cervical, thoracic, lumbar or midline bony tenderness. Normal inspection. NEURO: Alert, awake and oriented x3. Cranial nerves: II through XII grossly intact. Speech and language: Normal with no dysarthria or dysphasia. Motor system: Tone and bulk: Normal: Strength: 5 out of 5 in all 4 extremities; No pronator drift noted. Deep tendon reflexes: 2+ bilaterally symmetrical. Plantar reflex: Downgoing bilaterally. Sensory system: Intact to all modalities of sensation bilaterally. Coordination: Intact to [id number] and ykdz-[id number]-vwrr test bilaterally. No ataxia, no dysmetria, or dysdiadochokinesia noted. No intention tremors noted. Gait: Not tested. No signs of meningeal irritation noted. PSYCHIATRIC: Normal mood and affect. Objective Labs 07/13/25 05:43 07/13/25 05:43 Labs: Laboratory Results - last 24 hr 07/12/25 05:25 WBC 7.3 RBC 4.83 Hgb 13.0 Hct 38.5 MCV 80 MCH 26.9 MCHC 33.8 RDW Std Deviation 36.2 L Plt Count 263 D Neut % (Auto) 56 Lymph % (Auto) 31 [place] % (Auto) 11 Eos % (Auto) 2 Baso % (Auto) 0 Neut # (Auto) 4.1 Lymph # (Auto) 2.2 [place] # (Auto) 0.8 Eos # (Auto) 0.1 Baso # (Auto) 0.0 Immature Gran # (Auto) 0.02 H Absolute Nucleated RBC 0.00 Immature Gran % 0 Nucleated RBC % 0 Sodium 139 Potassium 3.2 L D Chloride 101 Carbon Dioxide 25.4 Anion Gap 13 BUN 9 Creatinine 0.7 Estim Creat Clear Calc 70.1 eGFR > 60 BUN/Creatinine Ratio [address]ucose [address] Glu mg/dL 355 H Hemoglobin A1c 14.0 H Calculated Osmolality 283 Calcium 9.1 Corrected Calcium 9.4 Magnesium 1.6 Total Bilirubin 0.5 AST 14 ALT 11 Alkaline Phosphatase 90 D Total Protein 6.6 Albumin 3.6 D Globulin 3.0 Albumin/Globulin Ratio 1.2 Triglycerides 188 H Cholesterol 190 LDL Cholesterol, Calc 122 HDL Cholesterol 30 L Cholesterol/HDL Ratio 6.3 H Vitamin B12 > 2000 H TSH 1.70 Quality Measures Quality Measures none Advance care planning discussed with:: patient Assessment & Plan Assessment Current Active Medications: Generic Name Dose Route Start Last Admin Trade Name Freq PRN Reason Stop Dose Admin Acetaminophen 650 mg 07/11/25 17:57 Acetaminophen 325 Mg Tablet PO 08/10/25 17:56 Q6H PRN Fever >100.4 or pain Aspirin 81 mg 07/12/25 09:00 07/12/25 09:35 Aspirin Ec 81 Mg Tabec PO 08/11/25 08:59 81 mg QDAY JABIER Administration Atorvastatin Calcium 80 mg 07/12/25 21:00 07/12/25 20:18 Atorvastatin Calcium 20 Mg Tablet PO 08/11/25 20:59 80 mg HS JABIER Administration Clopidogrel Bisulfate 75 mg 07/12/25 09:00 07/12/25 09:35 Clopidogrel Bisulfate 75 Mg Tablet PO 08/11/25 08:59 75 mg QDAY JABIER Administration Dextrose 25 ml 07/11/25 18:18 Dextrose 50%-Water Inj 50 Ml Syringe IV 08/10/25 18:17 Q15MIN PRN BG 50-70 responsive npo pt Dextrose 50 ml 07/11/25 18:18 Dextrose 50%-Water Inj 50 Ml Syringe IV 08/10/25 18:17 Q15MIN PRN BG <50 OR BG <70 & pt unresponsive Glucagon 1 mg 07/11/25 18:18 Glucagon Inj 1 Mg Vial IM Q15MIN PRN BG <70, and no IV access Insulin Degludec 10 unit 07/12/25 09:00 07/12/25 09:35 Insulin Degludec 5 Unit/0.05 Ml (Per 5 Units) SC 08/11/25 08:59 10 unit QDAY JABIER Administration Insulin Human Lispro 0 unit 07/12/25 07:50 07/12/25 17:23 Insulin Lispro (Admelog) 1 Unit/0.01 Ml Unit SC 08/11/25 07:29 4 unit AC JABIER Administration Protocol Labetalol HCl 10 mg 07/11/25 18:17 07/11/25 18:36 Labetalol Inj 5 Mg/Ml Vial 20 Ml IVP 08/10/25 18:29 10 mg Q6HR PRN Administration SBP > 185 Ondansetron HCl 4 mg 07/11/25 17:57 Ondansetron Inj 2 Mg/Ml Inj 2 Ml IVP 08/10/25 17:56 Q6H PRN NAUSEA OR VOMITING Protocol Sennosides 1 tab 07/11/25 17:57 Senna Tablet PO 08/10/25 17:56 QDAY PRN constipation Protocol Plan Shea John 65F pmhx significant for HTN and NIDDM2 who presented to [facility] ED 07/11 with L sided facial droop and gait instability, admitted for multiple acute infarcts R basal ganglia and R caudate nucleus. #Ischemic stroke of right basal ganglia Son noticed left side facial droop and returning from grocery store. Patient was complaning of weakness. Home BS readings around 300, BP at times around 160 systolic. Patient was not able to afford medications until this past week due to insurance covergae. No hx of stroke, afib or DVT. TSH wnl, B12>2000 CT head negative for acute hemorrhage mass effect or midline shift, small bilateral old appearing nonhemorrhagic infarcts in basal ganglia. CTA head and neck no significant negative stenosis or large vessel occlusion or thrombus. EKG sinus rhythm rate 71 QTc 431 left axis deviation no ST elevation or depression MRI brain showed acute infarcts in right BG. -continue aspirin 81 mg daily -continue Plavix 75mg daily -atorvastatin 80 mg QD - F/u TTE with bubble - PT consulted -cotinue DAPT for 21 days. Then continue only plavix -neuro checks #HTN On amlodipine 5 mg daily, lisinopril hydrochlorothiazide 20/12.5 twice daily, metoprolol tartrate 50 mg twice daily at home -resume as needed after permissive HTN time #NIDDM2 Home metformin 500 mg twice daily and Januvia 100 mg daily. a1c 14. trig 188, cholesterol 190, LDL 122, HDL 38. - SSI - Degludac 10u Primary care team to manage above conditions and ongoing care needs. The patient's management plan was discussed with my attending physician Dr. Amezcua. Galilea Nieto, PGY-2 Attending Provider Attestation/Addendum I personally have seen and examined the patient at the bedside and I agreed with resident's findings, assessment and plan of care. MRI brain showed acute infarcts in right bsala ganglia; Recs: continue aspirin 81 mg, plavix, and statin daily
[2025-07-13] VITALS (8 sets, daily range): BP systolic 158–190; BP diastolic 68–98; PULSE 56–72; RESP 17–97; TEMP 36.1–36.3; O2SAT 94–97; BMI 28.9
[2025-07-13] MEDS: LABETALOL INJ 5 MG/ML VIAL 20 ML 10 MG IVP (03:54)
[2025-07-13 06:09] LABS: Basophils # (Auto) 0.0 Thou/mm3 (0.0-0.2); Basophils % (Auto) 0 % (0-2.5); Eosinophils # (Auto) 0.2 Thou/mm3 (0.0-0.5); Eosinophils % (Auto) 2 % (0-10); Hematocrit 39.3 % (36.0-46.0); Hemoglobin 13.1 g/dL (12.0-16.0); Immature Granulocytes Auto 0.02 Thou/mm3 (0.00-0.00); Lymphocytes # (Auto) 2.0 Thou/mm3 (1.0-4.8); Lymphocytes % (Auto) 27 % (10-50); Mean Corpuscular HGB Conc 33.3 g/dl (31.0-37.0); Mean Corpuscular Hemoglobin 27.1 pg (25.0-35.0); Mean Corpuscular Volume 81 fL (80-100); Monocytes # (Auto) 0.8 Thou/mm3 (0.0-0.8); Monocytes % (Auto) 11 % (0-12); Neutrophils # (Auto) 4.3 Thou/mm3 (1.8-7.7); Neutrophils % (Auto) 59 % (37-80); Nucleated Red Blood Cell # 0.00 Thou/mm3 (0.00-0.00); Nucleated Red Blood Cell % 0 /100 WBC (0); Platelet Count 256 Thou/mm3 (140-440); RDW Standard Deviation 37.0 fL (36.4-46.3); Red Blood Count 4.83 Miln/mm3 (4.00-5.20); White Blood Count 7.3 Thou/mm3 (3.6-11.0)
[2025-07-13 06:32] LABS: Alanine Aminotransferase 13 U/L (10-49); Albumin, Serum 3.8 gm/dL (3.4-4.8); Albumin/Globulin Ratio 1.3 (1.2-2.2); Alkaline Phosphatase 93 U/L (46-116); Anion Gap 11 (7-16); Aspartate Amino Transferase 16 U/L (0-34); BUN/Creatinine Ratio 17 Ratio (12-20); Bilirubin,Total 0.5 mg/dL (0.3-1.2); Blood Urea Nitrogen 12 mg/dL (9-23); Calcium 9.1 mg/dL (8.3-10.6); Calcium (Corrected) 9.3 mg/dL (8.5-10.1); Carbon Dioxide 24.4 mMol/L (20.0-31.0); Chloride 103 mMol/L (98-107); Creatinine (Component) 0.7 mg/dL (0.6-1.3); Estimated Creatinine Clearance 71.5 mL/min (>60); Globulin 2.9 gm/dL (2.3-3.5); Glucose 278 mg/dL (74-106); Magnesium 1.7 mg/dL (1.6-2.6); Osmolality,Calculated 285 (275-295); Potassium 4.1 mMol/L (3.4-5.1); Sodium 138 mMol/L (136-145); Total Protein 6.7 gm/dL (5.7-8.2); eGFR > 60 See Note
[2025-07-13] MEDS: INSULIN LISPRO (AdmeLOG) 1 UNIT/0.01 ML UNIT SC ×2 (07:26→11:32)
[2025-07-13] MEDS: ASPIRIN EC 81 MG TABEC PO (08:43)
[2025-07-13] MEDS: CLOPIDOGREL BISULFATE 75 MG TABLET PO (08:43)
[2025-07-13] MEDS: INSULIN DEGLUDEC 5 UNIT/0.05 ML (PER 5 UNITS) 10 UNIT SC (08:43)
--- NOTE | 2025-07-13 15:37 | ESDS_ITS ---
<Statement entered by Onofre Montes MD - 07/13/25 16:35> I have reviewed the note and agree with the resident's assessment & plan with exceptions as below. I have personally reviewed labs, imaging, home meds/prior records, examined the patient, formulated and discussed management plan with my attending Onofre Montes PGY2 Disclaimer: Even though this this note was dictated by speech recognition and even though it was carefully revised there may still be minor errors in dot net architect due to voice recognition software. Planned Discharge Date 07/13/25 DS: Providers Provider Date of admission: 07/11/25 17:57 Primary care physician: Physician No Primary/Family Admitting Provider: Davina Street MD Attending Provider on Admission: Davina Street MD Consults: 07/11/25 16:00 Consult to Neurology / Tele-Neurology Routine Comment: Consulting Provider: [facility] 07/11/25 18:03 Referral Physical Therapy Routine Comment: Physician Instructions: 07/11/25 18:06 Referral Speech Therapy Routine Comment: 07/12/25 05:00 Consult to Neurology / Tele-Neurology Stat Comment: Consulting Provider: Giovany Amezcua 07/13/25 10:32 Referral Registered Dietitian Routine Comment: Attending Provider on DC: Davina Street MD Discharging Provider: Davina Street MD DS: Diagnosis Problem List Completed Was Problem List Reviewed/Reconciled?: Yes Hospital Course Hospital Course Hospital course: Summary: Shea John 65F pmhx significant for HTN and NIDDM2 who presents to [facility] ED 07/11 with L sided facial droop and gait instability, admitted for CVA multiple acute infarcts R basal ganglia and R caudate nucleus. Patient presented with confusion and gait instability starting 07/09, woke up 07/10 with new L facial droop with continued confusion and gait instability, prompting ED visit. Positive difficulty with L and R differentiation. No hx of stroke, afib or DVT. Patient placed on ASA, Plavix and statin and imaging positive for multiple infarcts of R basal ganglia and R caudate nucleus. TTE negative bubble study and no evidence of PFO. Of note, on day 2 of admission, new T wave inversions seen on EKG, however patient denied chest pain or anginal equivalents. Furthermore, patient A1c 14 and patient was started on insulin. On discharge, patient hemodynamically stable, vitals and labs reviewed to be stable and patient is ready to be discharged with home health. Called patient to inform regarding neurology recommendations of DAPT of Plavix and ASA for 21 days and subsequent Plavix only daily. Imaging: TTE: negative bubble study and no evidence of PFO. Moderate calcific aortic valve stenosis Vmax 3.3 m/sec Peak Gradient 40 mm hg, mean Gradient 24 mm Hg Mild aortic regurgitation Normal LV size and wall thickness. Estimated EF at 55%. There is grade I diastolic dysfunction. The RV is normal in size and systolic function. Trace mitral and trace tricuspid regurgitation. CT head negative for acute hemorrhage mass effect or midline shift, small bilateral old appearing nonhemorrhagic infarcts in basal ganglia CTA head and neck no significant negative stenosis or large vessel occlusion or thrombus Discharge Recommendations: - Please take all medications as prescribed - START Plavix 75 mg daily and ASA 81 mg daily for 21 days, and subsequently only Plavix 75 mg daily - START atorvastatin 80 mg nightly - START long acting insulin degludac 10u and short acting 4u with meals - STOP metoprolol tartrate - Continue all home medications except as above - Please follow up with your PCP within one week of discharge - If your symptoms worsen, please seek immediate medical attention and return to your nearest emergency room. - If you do not have a PCP, you may follow up at the [facility] at [address] [place] [address] [address] [address], Hospital Diagnoses: #Multiple acute infarcts R basal ganglia and R caudate nucleus #L facial droop #HTN #[id number] Antonia Crouch, Internal Medicine, PGY-1 Time Spent with Patient Time attestation: Total time spent providing and/or coordinating discharge services: 35 min Time spent: Greater than 30 minutes Home Health Home Health Referral Orders: 07/13/25 07:57 Home Health Referral Routine Reason For Exam: CVA Home-Bound The patient must either because of illness or injury, need the aid of supportive devices such as crutches, canes, wheelchairs, and walkers; the use of special transportation; or the assistance of another person in order to leave their place of residence; OR have a condition such that leaving his or her home is medically contraindicated. In addition, the patient also meets the following criteria: patient is normally unable to leave the home and leaving home requires considerable taxing effort. Addendum to Home Health Certification Practitioner's Certification: I certify that the patient has been under my care in the hospital and the care of attending physician (see below). We had a wyhv-ec-rswm encounter on (see date below). My clinical findings indicate that the patient is home bound per the above criteria and the Home Health Services noted in these orders are medically necessary. The primary reason for the [id number] encounter is related to the fact that the patient requires home health services. Date Certifying Rtrf-lg-[id number] Physician Encounter: 07/11/25 Physician's Name who will Assume Oversight for HH Services: Reginald Estrella RETAIL TEAM LEADER - Community Resources: No PT to Evaluate: Yes PT to evaluate and provide a treatmnet plan to increase patient's mobility and strength. Wound Care: No IV Therapy: No RN Safety Evaluation: Yes RN to evaluate and create a plan of care that will produce positive outcomes. Palliative Treatment: No Palliative treatment and evaluate the need for hospice. Home Health Aide - Personal Care: No Home Health Aide to assist with any ADL's. Exam Vital Signs Temp Pulse Resp BP Pulse Ox O2 Del Method 97.2 F 66 20 166/88 H 94 L Room Air 07/13/25 12:00 07/13/25 12:00 07/13/25 12:00 07/13/25 12:00 07/13/25 12:00 07/13/25 12:00 Narrative Exam GENERAL: AOx3, no acute distress HEENT: mucous membranes moist, bilateral sclera anicteric CARDIOVASCULAR: regular rate and rhythm, S1/S2 present, 3/6 systolic murmur PULMONARY: clear to auscultation bilaterally, no rales/rhonchi/wheezes ABDOMINAL: soft, non-tender, non-distended, no rebound/guarding, bowel sounds present EXTREMITIES: no peripheral edema SKIN: warm and dry, intact, no rashes NEURO: Orientation: AO x 3 Communication: Patient is cooperative and can follow simple instructions Language: Speech fluent, normal rate and volume, comprehension intact Cranial nerves: CN II: Visual clarke intact CN III: Pupils equal, round, and reactive to light CN III, IV, : No gaze deviation, no nystagmus Horizontal pursuit: intact Vertical pursuit: intact Ptosis: none CN V: Facial sensation to light touch intact bilaterally at the forehead, cheeks, and jaw line CN VII: slight L sided deviation of angle of mouth CN VIII: Able to hear and respond to conversation at normal volume CN IX, X: Palate elevation symmetric, uvula midline CN XI: Head turn and shoulder shrug strong, symmetric bilaterally CN XII: Normal tongue protrusion without deviation, no fasciculations Motor: Normal bulk and tone No atrophy No abnormal movements or fasciculations Muscle strength: Shoulder abduction: R 5/5 L 5/5 Elbow flexion: R 5/5 L 5/5 Elbow extension: R 5/5 L 5/5 Hip flexion: R 5/5 L 5/5 Hip extension: R 5/5 L 5/5 Knee flexion: R 5/5 L 5/5 Knee extension: R 5/5 L 5/5 Plantarflexion: R 5/5 L 5/5 Cerebellum: RUE and LUE: No dysmetria (finger to nose) Discharge Plan Plan Patient Disposition: Home w/HOME HEALTH Care Plan Goals: Please follow up with your primary care physician within 2-3 days Please follow up with neurologist within 7 days upon discharge You have been started on Aspirin 81 mg daily and atorvastatin 80mg every night We have held your metoprolol tartrate due to low heart rate We have stopped your Januvia We have started you on insulin degludec 10units daily and insulin lispro 4 units three times a day with meals We have started you again on metformin 500mg twice a day with meals Please continue all other home medications as prescribed Please come back to the ER if symptoms persist or worsen. Por favor, consulte con ayala m?dico de cabecera en un plazo de 2 a 3 d?as. Por favor, consulte con un neur?logo en un plazo de 7 d?as tras el ariana. Lowe comenzado a cristina aspirina 81 mg al d?a y atorvastatina 80 mg todas las noches. Hemos suspendido ayala tartrato de metoprolol debido a la baja frecuencia card?sadiq. Hemos suspendido ayala Januvia. Hemos comenzado a cristina insulina degludec 10 unidades al d?a y insulina lispro 4 unidades dariel veces al d?a con las comidas. Hemos comenzado de nuevo a cristina metformina 500 mg dos veces al d?a con las comidas. Contin?e con todos los dem?s medicamentos que le recetaron. Por favor, vuelva a urgencias si los s?ntomas persisten o empeoran. Prescriptions/Referrals Prescriptions/Med Rec: New insulin degludec 100 unit/mL (3 mL) insulin pen 10 unit subcut QDAY Qty: 15 0RF (DME) pen needle, diabetic [1st Tier Unifine Pentips] 29 gauge x 1/2 needle See Rx Instructions .Route Qty: 100 0RF Rx Instructions: As directed (DME) FreeStyle Nga 3 Plus Sensor Device See Rx Instructions .Route Qty: 1 0RF Rx Instructions: As directed (DME) FreeStyle Nga 3 [place] Misc See Rx Instructions .Route Qty: 1 0RF Rx Instructions: As directed atorvastatin [Lipitor] 80 mg tablet 80 mg PO QPM Qty: 30 0RF insulin lispro [Humalog KwikPen Insulin] 100 unit/mL insulin pen 4 unit subcut TIDWMEAL Qty: 15 0RF metformin 500 mg tablet 500 mg PO BIDWMEAL Qty: 60 0RF (DME) blood-glucose meter [Accu-Chek Guide Glucose Meter] Misc See Rx Instructions .Route Qty: 1 0RF Rx Instructions: As directed (DME) Accu-Chek Guide test strips Strip See Rx Instructions .Route Qty: 100 0RF Rx Instructions: As directed clopidogrel 75 mg tablet 75 mg PO QDAY Qty: 30 0RF aspirin 81 mg capsule 81 mg PO QDAY Qty: 21 0RF (DME) lancets 17 gauge misc See Rx Instructions .Route Qty: 200 0RF Rx Instructions: 3 time a Day Continued amlodipine 5 mg tablet 5 mg PO QDAY lisinopril-hydrochlorothiazide 20-12.5 mg tablet 1 tab PO BID Held metoprolol tartrate 50 mg tablet 50 mg PO .BID W/MEALS Hold Instructions: Resume on 07/20/25. Hold until you follow up with your primary care physician given low heart rate Discontinued metformin 500 mg tablet 500 mg PO .BID W/ MEALS Januvia 100 mg tablet 100 mg PO QDAY Referrals: Reginald Estrella MD [Physician, Family Practice] No Primary/Family,Physician [Primary Care Provider] Patient/Caregiver Discharge Instructions Other Discharge Activity Instructions:: Please follow up with your primary care physician within 2-3 days Please follow up with neurologist within 7 days upon discharge You have been started on Aspirin 81 mg daily and atorvastatin 80mg every night We have held your metoprolol tartrate due to low heart rate We have stopped your Januvia We have started you on insulin degludec 10units daily and insulin lispro 4 units three times a day with meals We have started you again on metformin 500mg twice a day with meals Please continue all other home medications as prescribed Please come back to the ER if symptoms persist or worsen. Education Materials: Anatomy of the Brain, Discharge Instructions for Stroke, Insulin Injection Steps, Insulin Pen Clear Insulin Steps Print Language: Australian Stand Alone Forms: Brenda Award Info., Patient Portal Info Letter Discharge Order Discharge Orders: Discharge (Routine); Ordered 07/13/25 Ordered By: Antonia Crouch Quality Discharge Quality Measures VTE prophylaxis MD Attestestation MD Attestation I have seen and examined the patient. I was physically present for the alonso portions of the services provided including history, physical exam, diagnosis, treatment plans and orders. I agree with assessment and plan of care as documented by residents. Even though this this note was carefully revised there may still be minor errors in dot net architect due to voice recognition software. Davina Street MD
--- NOTE | 2025-07-13 15:43 | PC.SS ---
Rounding Note: Plan is to d/c the patient home today.
--- NOTE | 2025-07-13 15:52 | PC.CC ---
Met w/ patient and family at bedside for DM education and insulin injection training. Patient reports 20 year history of diabetes but never managed on insulin. 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 Patient designated her to administer insulin but he was not present at bedside. Discussed discharge plan to include long acting and meal time insulin with four shots per day in total and patient was apprehensive. After discussion, patient was willing to adhere to once daily insulin plan. Discussed and demonstrated use of insulin pen including preparation and insulin injection technique. Patient able to return demonstrate use of insulin pen with verbal coaching and was able to administer an injection into a demonstration cube with some difficulty. Patient demonstrated equal hand and arm strength bilaterally at time of education. Emphasized the importance of adherence to long acting insulin and encouraged close follow-up with PCP which may incorporate mealtime insulin if needed. Patient has a fingerstick glucometer at home but she cannot recall the name. She reports she is low on test strips and does not like to poke her fingers and does not test at home. Family expressed a strong interest in CGM and reader, which was ordered by MD. Advised patient PharmD to follow-up with pharmacy and insurance for CGM coverage, but encouraged patient to monitor FBG at least QOD. Reviewed target FBG range. 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 S/W Dr. Street and requested test strips. Updated Dr. Farzad Montes. PA obtained for Freestyle Nga 3 Plus sensors and reader approved through 07/13/26. S/W Usha @ [facility] who confirmed both items covered at $0 and they are able to dispense. She advised copay of Tresiba (insulin degludec) is $105 ($35/month x 3 month supply per medicare hen[place] limits).
--- NOTE | 2025-07-14 17:12 | PC.CM ---
Patient has been accepted by [facility] and start of care date for 07/15.
--- NOTE | 2025-07-17 09:27 | PD.NEUROPROG ---
Documentation for date of: 07/17/25 Exam - Neurology Vital Signs Temp Pulse Resp BP Pulse Ox O2 Del Method 97.4 F 67 20 158/68 H 95 Room Air 07/13/25 15:00 07/13/25 15:00 07/13/25 15:00 07/13/25 15:00 07/13/25 15:00 07/13/25 12:00 Objective Labs 07/13/25 05:43 07/13/25 05:43
== END 2025-07-13 15:39 | disposition home health service (06) | DRG 66 ==
LOC: SERX 17:51 → S2NX 07-12 06:15 → SERHOLD 07-12 10:30
PROVIDERS: Admitting Provider Student in an Organized Health Care Education/Training Program; Emergency Provider Emergency Medicine; Visit Provider Student in an Organized Health Care Education/Training Program
DX: I63.89 Other cerebral infarction (principal); R29.810 Facial weakness; I10 Essential (primary) hypertension; E11.9 Type 2 diabetes mellitus without complications; Z66 Do not resuscitate; R26.89 Other abnormalities of gait and mobility; E87.6 Hypokalemia; E78.5 Hyperlipidemia, unspecified; Z79.02 Long term (current) use of antithrombotics/antiplatelets; Z79.82 Long term (current) use of aspirin; Z79.84 Long term (current) use of oral hypoglycemic drugs; Z79.899 Other long term (current) drug therapy
CPT/HCPCS: 36415; 70450; 70496; 70498; 70551; 71045; 80053; 80061; 80307; 80320; 81001; 82607; 83036; 83735; 83880; 84443; 84484; 85025; 85610; 85730; 92610; 93005; 93306; 96374; 97162; 99285; A4649; J1815; J3475; J3490; Q9967; A9270; G0480; J1920

== ENCOUNTER 2025-09-07 21:20 | Emergency (ER) | payer MEDICARE, SELFPAY ==
[2025-09-07 21:51] VITALS: BP 163/83; PULSE 90; RESP 18; TEMP 36.1; O2SAT 98
--- NOTE | 2025-09-07 21:55 | PD.EDDENTL ---
ED Dental RME/HPI General Chief complaint: General Adult/Misc Complain Stated complaint: S/P DENTAL PROCEDURE, BLEEDING Time Seen by Provider: 09/07/25 21:40 Arrival date/time: 09/07/25 21:20 65F with history of CVA (on Plavix, aspirin) presents to ED with dental bleeding after several teeth were removed today. Limitations: no limitations Related Data Home Medications ?Medication ?Instructions ?Recorded ?Confirmed amlodipine 5 mg tablet 5 mg PO QDAY 07/12/25 07/12/25 lisinopril 20 1 tab PO BID 07/12/25 07/12/25 mg-hydrochlorothiazide 12.5 mg tablet metoprolol tartrate 50 mg tablet 50 mg PO .BID W/MEALS 07/12/25 07/12/25 Held on 07/13/25. Instructions: Resume on 07/20/25. 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 ea 07/13/25 (FreeStyle Nga 3 [place]) clopidogrel 75 mg tablet 75 mg PO QDAY #30 tabs 07/13/25 insulin degludec 100 unit/mL (3 10 unit (0.1 mL) subcut QDAY #15 mL 07/13/25 mL) subcutaneous pen insulin lispro 100 unit/mL 4 unit (0.04 mL) subcut TIDWMEAL 07/13/25 subcutaneous pen (Humalog KwikPen #15 mL (U-100) Insulin) lancets 17 gauge #200 ea 07/13/25 metformin 500 mg tablet 500 mg PO BIDWMEAL #60 tabs 07/13/25 pen needle, diabetic 29 gauge x #100 ea 07/13/25 1/2 (1st Tier Unifine Pentips) hydrocodone 5 mg-acetaminophen 325 1 tab PO BID PRN pain (scale score 09/08/25 mg tablet 7-10) #7 tabs naloxone 4 mg/actuation nasal 4 mg intranasal Q2M #2 ea 09/08/25 spray (Narcan) Allergies Allergy/AdvReac Type Severity Reaction Status Date / Time No Known Allergies Allergy Verified 09/07/25 21:21 Review of Systems Review of Systems Systems Reviewed: All systems reviewed, normal except as documented ENT Ears, Nose, Mouth, and Throat: Reports as per HPI and Reports other (dental bleeding) Past Medical History Past Medical History NEUROLOGIC: Negative Neurological Disorders CARDIAC: Positive Cardiac Disorders, Hypercholesterolemia and Hypertension; Negative Congestive Heart Failure RESPIRATORY: Negative Chronic Obstructive Pulmonary Disease (COPD) GASTROINTESTINAL: Negative Gastrointestinal Disorders GENITOURINARY: Negative Genitourinary Disorders or Renal Disease REPRODUCTIVE: Negative Pelvic Inflammatory Disease MUSCULOSKELETAL: Negative Musculoskeletal Disorders ENDOCRINE: Positive Endocrine Disorders and Diabetes Mellitus Type 2; Negative Diabetes Mellitus Type 1 HEMATOLOGIC: Negative Blood Disorders OTHER HISTORY: Negative Autoimmune Disease, Anesthesia Reactions, Organ Transplant, MRSA, Clostridium Difficile or Cancer Family History FAMILY HISTORY: Negative Family Cardiac Disorders Surgical History SURGICAL: Positive Section; Negative Cardiac Surgery, Endocrine Surgery, Thyroidectomy, Ear Surgery, Abdominal Surgery, Nephrectomy, Joint Replacement, Neurologic Surgery, Brain Shunt, Lumpectomy, Hysterectomy, Tubal Ligation or Organ Transplant Social History SMOKING STATUS: Never smoker SUBSTANCE USE: does not use ED Exam General Limitations: Present no limitations General appearance: Present alert and in no apparent distress Head Head exam: Present atraumatic ENT ENT exam: Present mucous membranes moist Expanded ENT Exam Teeth exam: Present other (bleeding) Neck Neck exam: Present normal inspection, full ROM and trachea midline Neurological Exam Neurological exam: Present alert and oriented X3 Psychiatric Psychiatric exam: Present normal affect and normal mood Skin Skin exam: Present warm, dry, intact and normal color Course Quality Measures none Orders Category Date Time Status CBC Stat Lab 09/08/25 00:15 Completed CMP [Comprehensive Metabolic Panel] Stat Lab 09/08/25 00:15 Completed Amoxicillin/Pot Clav 875 [Augmentin 875] Med 09/08/25 01:26 Discontinued 1 tab PO X1 ONE HYDROcodone*/APAP 5/325 [[place] 5/325] Med 09/07/25 23:13 Discontinued 1 tab PO X1 ONE Lidocaine 1% W/Epi 1:100K 20Ml [Xylocaine 1% w/Epi 1: Med 09/08/25 00:03 Discontinued 100K 20 ml] 20 ml INFL X1 ONE Tranexamic Acid Inj Med 09/07/25 21:55 Discontinued 1,000 mg PO X1 ONE Tranexamic Acid Inj Med 09/07/25 23:11 Discontinued 1,000 mg PO X1 ONE Vital Signs Vital signs: Vital Signs Temperature 97 F 09/07/25 21:51 Pulse Rate 90 09/07/25 21:51 Respiratory Rate 18 09/07/25 21:51 Blood Pressure 163/83 H 09/07/25 21:51 Pulse Oximetry (%) 98 09/07/25 21:51 Oxygen Delivery Method Room Air 09/07/25 21:51 O2 at 98% on RA and WNLs Dental / Oral MDM Narrative MDM Narrative:: 65F with history of CVA (on Plavix, aspirin) presents to ED with dental bleeding after several teeth were removed today. Physical exam reveals some dental bleeding in top and bottom of R-side of mouth. Patient is afebrile, calm, and alert. Despite two courses of topical TXA, bleeding has not improved. Care signed out to Dr. Sethi. Patient data External records reviewed:: [facility] previous records Clinical information provided by:: patient Social determinants that could affect healthcare access:: none Patient has the following chronic illnesses:: CVA How is presenting disease/condition affected by chronic disease/condition?: exacerbated by Evaluation data The following diagnostics were reviewed and interpreted by me:: other (specify) (none) Lab and/or radiology exams considered but not ordered:: not ordered Interpretation Summary: n/a Medications / Prescriptions Medications or Prescriptions considered but not ordered:: ordered Medication administrations:: Medication Administration History Discontinued Medications Hydrocodone Bitart/Acetaminophen (Hydrocodone/Apap 5/325 Tablet) 1 tab PO X1 ONE Stop: 09/07/25 23:14 Last Admin: 09/07/25 23:27 Dose: 1 tab Documented By: SHAINA Amoxicillin/Clavulanate Potassium (Amoxicillin/Pot Clav 875 Tablet) 1 tab PO X1 ONE Stop: 09/08/25 01:27 Lidocaine/Epinephrine (Lidocaine 1% W/Epi 1:100k 20 Ml Vial) 20 ml INFL X1 ONE Stop: 09/08/25 00:04 Last Admin: 09/08/25 00:23 Dose: 20 ml Documented By: SHAINA Comments: administered by Tranexamic Acid (Tranexamic Acid Inj 1,000 Mg/10 Ml Vial) 1,000 mg PO X1 ONE Stop: 09/07/25 21:56 Last Admin: 09/07/25 22:40 Dose: 1,000 mg Documented By: SHAINA Comments: saturated gauze. placed on bleeding area Tranexamic Acid (Tranexamic Acid Inj 1,000 Mg/10 Ml Vial) 1,000 mg PO X1 ONE Stop: 09/07/25 23:12 Last Admin: 09/07/25 23:28 Dose: 1,000 mg Documented By: SHAINA above Consultations Consultation(s) initiated? (list below): No Diagnosis Dental Differential Diagnosis: gingival abscess, dental caries, toothache, dental abscess, fracture of tooth, aphthous ulcer and other (dental bleeding, anemia) Most likely diagnosis given after review of the tests above:: dental bleeding and anemia Admission Indicated Admission indicated?: not indicated Admission Request Was there a request for admission?: No Disposition Plan Disposition Plan: Discharge Discharge Attestation Discharge Attestation: The patient and all family members were given an opportunity to ask questions and understood the discharge instructions. Discharge instructions specifically effects, indications for sooner follow up or return to the emergency department, and the expected course of current diagnosis. Patient condition: Stable Discharge Plan Plan Patient Disposition: HOME (Self Care) Prescriptions/Referrals Prescriptions/Med Rec: New hydrocodone-acetaminophen 5-325 mg tablet 1 tab PO BID MDD 2 PRN (Reason: pain (scale score 7-10)) Qty: 7 0RF naloxone [Narcan] 4 mg/actuation spray,non-aerosol 4 mg intranasal Q2M Qty: 2 0RF Rx Instructions: spray 1 dose into ONE nostril; alternate nostrils w each dose until help arrives No Action amlodipine 5 mg tablet 5 mg PO QDAY lisinopril-hydrochlorothiazide 20-12.5 mg tablet 1 tab PO BID metoprolol tartrate 50 mg tablet 50 mg PO .BID W/MEALS insulin degludec 100 unit/mL (3 mL) insulin pen 10 unit subcut QDAY Qty: 15 0RF (DME) pen needle, diabetic [1st Tier Unifine Pentips] 29 gauge x 1/2 needle See Rx Instructions .Route Qty: 100 0RF Rx Instructions: As directed (DME) FreeStyle Nga 3 Plus Sensor Device See Rx Instructions .Route Qty: 1 0RF Rx Instructions: As directed (DME) FreeStyle Nga 3 [place] Misc See Rx Instructions .Route Qty: 1 0RF Rx Instructions: As directed atorvastatin [Lipitor] 80 mg tablet 80 mg PO QPM Qty: 30 0RF insulin lispro [Humalog KwikPen Insulin] 100 unit/mL insulin pen 4 unit subcut TIDWMEAL Qty: 15 0RF metformin 500 mg tablet 500 mg PO BIDWMEAL Qty: 60 0RF (DME) blood-glucose meter [Accu-Chek Guide Glucose Meter] Misc See Rx Instructions .Route Qty: 1 0RF Rx Instructions: As directed (DME) Accu-Chek Guide test strips Strip See Rx Instructions .Route Qty: 100 0RF Rx Instructions: As directed clopidogrel 75 mg tablet 75 mg PO QDAY Qty: 30 0RF aspirin 81 mg capsule 81 mg PO QDAY Qty: 21 0RF (DME) lancets 17 gauge misc See Rx Instructions .Route Qty: 200 0RF Rx Instructions: 3 time a Day Referrals: Reginald Estrella MD [Primary Care Provider, Family Practice] - In 1 week Problem List Clinical Impression: Bleeding post tooth extraction, Anemia Patient/Caregiver Discharge Instructions Education Materials: Anemia, ED Dental Pain Additional Instructions: I am glad that you are feeling better and that the bleeding stopped at your dental extraction site. Your labs today show that you have anemia, your hemoglobin is 10.4 previously it was 13. You do not need an emergent transfusion today. It is important that you do not brush at the extraction site for at least 24 hours, nor incur any trauma nor eat anything that could cause trauma to the dental extraction site or foreign body to be inserted. You can rinse your mouth with gentle mouthwashes. It is important that you take your antibiotics as prescribed by your dentist. I do recommend that you restart your aspirin and Plavix tomorrow. I do not recommend that you take ibuprofen as this can cause worsening platelet dysfunction and contribute to bleeding from your dental extraction site. Recommend to eat a soft pur?ed diet. If you have recurrence of bleeding, please apply the gauze as shown today and keep in place for at least an hour. If bleeding does not stop please return to the emergency department immediately for further assistance or call 911. Print Language: Gabonese Stand Alone Forms: [employer] Info., Patient Portal Info Letter
[2025-09-07] MEDS: TRANEXAMIC ACID INJ 1,000 MG/10 ML VIAL 1000 MG PO ×2 (22:40→23:28)
[2025-09-07] MEDS: HYDROcodone/APAP 5/325 TABLET 1 TAB PO (23:27)
--- NOTE | 2025-09-08 00:03 | EDNOTE_ITS ---
Emergency Room Addendum <Clementine Estrella - Last Filed: 09/08/25 01:24> Addendum Narrative: 0000: Care assumed from Rogelio Reed PA-C. Past medical, surgical, social and family history reviewed. Vitals and home medications reviewed. Results and treatment plan discussed. I will assume the care of the patient at this time and will follow the patient. Please refer to the emergency department record for history and examination from initial visit. 65yo female with history of CVA on Plavic and Aspirin, HTN, DM presents to the ED for a chief complaint of bleeding from her tooth extraction site. Patient had 2 teeth (one at the right upper gum and another at the right lower gum) extracted earlier this afternoon around 1600. Patient's family at bedside states the bleeding was initially managable, but around 2129, the bleeding significantly worsened and they were unable to control it. On exam, patient's lower tooth socket is clean, dry, and not actively bleeding. No fluctuance. The right upper socket has slow active venous oozing from the site. Patient was already given TXA 2g without improvement. I administered 2 cc lidocaine with epinephrine and replaced the gauze to the site and told the patient to keep pressure. 0120: Patient's gums have stopped bleeding. Patient feels significantly better and is stable to be discharged home. <Cheryl Sethi MD - Last Filed: 09/08/25 01:34> Addendum Narrative: 0000: Care assumed from Rogelio Reed PA-C. Past medical, surgical, social and family history reviewed. Vitals and home medications reviewed. Results and treatment plan discussed. I will assume the care of the patient at this time and will follow the patient. Please refer to the emergency department record for history and examination from initial visit. 65yo female with history of CVA on Plavic and Aspirin, HTN, DM presents to the ED for a chief complaint of bleeding from her tooth extraction site. Patient had 2 teeth (one at the right upper gum appears to be tooth site #4 and another at the right lower gum ~tooth #29) extracted earlier this afternoon around 1600. Patient's family at bedside states the bleeding was initially manageable, but around 2129, the bleeding significantly worsened and they were unable to control it. On exam, patient's lower tooth socket is clean, dry, and not actively bleeding. No fluctuance. The right upper socket has slow active venous oozing f rom the site. Patient was already given TXA 2g via soaked gauze without improvement. I administered 2 cc lidocaine with epinephrine at the upper tooth extraction site and replaced the gauze to the site and told the patient to keep pressure. 0120: Patient's gums have stopped bleeding. Patient feels significantly better and is stable to be discharged home. Labs show that patient has a hemoglobin of 10 however couple months ago was 13. Patient has not made an emergent transfusion given that she is not tachycardic not hypotensive hemodynamically stable not short of breath does not feel weak nor presyncopal. Advised patient to restart her aspirin and Plavix in the morning given that she takes this for stroke prevention. She was prescribed ibuprofen for pain however I requested that she does not take any other NSAID as this can result in worsening bleeding of her gums. Family has requested that Medication for pain, I have done so. Also provided patient with a dose of antibiotics here given that they were not able to fiber picker their antibiotics today. Patient has in a biotics prescribed by her dentist waiting for her at the pharmacy tomorrow. Advised patient that if bleeding resumes to apply pressure with a gauze as was done today in the emergency department. If the bleeding worsens or she is unable to control the bleed at home she is to return to the emergency department immediately. Patient is to follow-up with a dentist in the morning as well as her primary care doctor. Close return precautions provided.
[2025-09-08] MEDS: LIDOCAINE 1% W/EPI 1:100K 20 ML VIAL INFL (00:23)
[2025-09-08 00:32] LABS: Basophils # (Auto) 0.0 Thou/mm3 (0.0-0.2); Basophils % (Auto) 0 % (0-2.5); Eosinophils # (Auto) 0.2 Thou/mm3 (0.0-0.5); Eosinophils % (Auto) 2 % (0-10); Hematocrit 30.4 % (36.0-46.0); Hemoglobin 10.4 g/dL (12.0-16.0); Immature Granulocytes Auto 0.02 Thou/mm3 (0.00-0.00); Lymphocytes # (Auto) 1.9 Thou/mm3 (1.0-4.8); Lymphocytes % (Auto) 18 % (10-50); Mean Corpuscular HGB Conc 34.2 g/dl (31.0-37.0); Mean Corpuscular Hemoglobin 27.5 pg (25.0-35.0); Mean Corpuscular Volume 80 fL (80-100); Monocytes # (Auto) 1.1 Thou/mm3 (0.0-0.8); Monocytes % (Auto) 10 % (0-12); Neutrophils # (Auto) 7.3 Thou/mm3 (1.8-7.7); Neutrophils % (Auto) 69 % (37-80); Nucleated Red Blood Cell # 0.00 Thou/mm3 (0.00-0.00); Nucleated Red Blood Cell % 0 /100 WBC (0); Platelet Count 306 Thou/mm3 (140-440); RDW Standard Deviation 38.4 fL (36.4-46.3); Red Blood Count 3.78 Miln/mm3 (4.00-5.20); White Blood Count 10.5 Thou/mm3 (3.6-11.0)
[2025-09-08 00:51] LABS: Alanine Aminotransferase 21 U/L (10-49); Albumin, Serum 4.2 gm/dL (3.4-4.8); Albumin/Globulin Ratio 1.3 (1.2-2.2); Alkaline Phosphatase 91 U/L (46-116); Anion Gap 13 (7-16); Aspartate Amino Transferase 19 U/L (0-34); BUN/Creatinine Ratio 30 Ratio (12-20); Bilirubin,Total 0.5 mg/dL (0.3-1.2); Blood Urea Nitrogen 21 mg/dL (9-23); Calcium 9.2 mg/dL (8.3-10.6); Calcium (Corrected) 9.2 mg/dL (8.5-10.1); Carbon Dioxide 26.2 mMol/L (20.0-31.0); Chloride 102 mMol/L (98-107); Creatinine (Component) 0.7 mg/dL (0.6-1.3); Globulin 3.2 gm/dL (2.3-3.5); Glucose 127 mg/dL (74-106); Osmolality,Calculated 286 (275-295); Potassium 3.4 mMol/L (3.4-5.1); Sodium 141 mMol/L (136-145); Total Protein 7.4 gm/dL (5.7-8.2); eGFR > 60 See Note
[2025-09-08 01:04] VITALS: BP 122/77; PULSE 81; RESP 18; TEMP 36.3; O2SAT 95
[2025-09-08] MEDS: AMOXICILLIN/POT CLAV 875 TABLET 1 TAB PO (01:52)
[2025-09-08 01:57] VITALS: RESP 18
== END 2025-09-08 01:58 | disposition home or self-care (01) ==
PROVIDERS: Emergency Provider Emergency Medicine; PCP Family Medicine
DX: K91.840 Postprocedural hemorrhage of a digestive system organ or structure following a digestive system procedure (principal); D64.9 Anemia, unspecified; Y84.8 Other medical procedures as the cause of abnormal reaction of the patient, or of later complication, without mention of misadventure at the time of the procedure
CPT/HCPCS: 36415; 80053; 85025; 99282; J3290; J3490; A9270

== ENCOUNTER 2025-09-08 07:57 | Emergency (ER) | payer MEDICARE, SELFPAY ==
[2025-09-08] VITALS (9 sets, daily range): BP systolic 107–140; BP diastolic 59–74; PULSE 63–87; RESP 15–24; TEMP 36.3–36.8; O2SAT 98–100; BMI 29.2
--- NOTE | 2025-09-08 08:42 | EDNOTE_ITS ---
<Statement entered by Tara Manley MD - 09/23/25 17:42> I, Tara Manley MD, have reviewed the history, exam, and assessment of the patient. I have evaluated the patient independently and agree with the plan of care documented by [ ]. All diagnostic studies were reviewed and discussed. I confirm the diagnosis as documented by the Resident. I was present during the Medical Decision Making for this patient. The patient's plan of care was created between myself and the Resident and consistent with our discussion of the patient's case. ED General RME/HPI General Chief complaint: Dental/Oral/Throat Stated complaint: BLEEDING FROM TOOTH EXTRACTION SINCE YESTERDAY Time Seen by Provider: 09/08/25 08:49 Arrival date/time: 09/08/25 07:57 Related Data Home Medications ?Medication ?Instructions ?Recorded ?Confirmed amlodipine 5 mg tablet 5 mg PO QDAY 07/12/25 lisinopril 20 1 tab PO BID 07/12/25 mg-hydrochlorothiazide 12.5 mg tablet metoprolol tartrate 50 mg tablet 50 mg PO .BID W/MEALS 07/12/25 07/12/25 Held on 07/13/25. Instructions: Resume on 07/20/25. 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 Instructions: Resume on 09/13/25. Hold until you are seen by your PCP and resolution of bleeding tooth. insulin degludec 100 unit/mL (3 10 unit (0.1 mL) subcu t QDAY #15 mL 07/13/25 mL) subcutaneous pen insulin lispro 100 unit/mL 4 unit (0.04 mL) subcut TID WMEAL 07/13/25 subcutaneous pen (Humalog KwikPen #15 mL (U-100) Insulin) lancets 17 gauge #200 ea 07/13/25 metformin 500 mg tablet 500 mg PO BIDWMEAL #60 tabs 07/13/25 pen needle, diabetic 29 gauge x #100 ea 07/13/25 1/2 (1st Tier Unifine Pentips) hydrocodone 5 mg-acetaminophen 325 1 tab PO BID PRN pa in (scale score 09/08/25 mg tablet 7-10) #7 tabs naloxone 4 mg/actuation nasal 4 mg intranasal Q2M #2 e a 09/08/25 spray (Narcan) Allergies Allergy/AdvReac Type Severity Reaction Status Date / Time No Known Allergies Allergy Verified 09/08/25 08:02 ED Exam Narrative Physical exam: Physical Exam: GENERAL: Awake, answering questions appropriately in Yakut, appears stated age HEENT: NC/AT. Dry mucosa. PERRLA/EOMI. Conjunctival pallor noted without anicteric sclera. Third right upper molar region oozing with a clot noted, poor dentition missing teeth CARDIO: Heart RRR, no obvious murmurs, no JVD. PULM: No coughing or visible SOB. Lungs CTA B/L. GI: Abdomen soft, NT/ND, +BS. SKIN/MSK/EXT: No wounds/discoloration/rashes/edema/amputations. +Pedal pulses present B/L. NEURO: Oriented x3, Moves extremities x4, no focal neurologic deficits noted. Course Quality Measures none Orders Category Date Time Status Student Success Counselor Q4H START 00 Care 09/08/25 08:43 Active Transfuse,blood/blood products NOW Care 09/08/25 09:54 Active Hemoglobin and Hematocrit Stat Lab 09/08/25 09:05 Completed Type and Screen Stat Lab 09/08/25 10:09 Completed prbc [Red Blood Cells] Stat Lab 09/08/25 10:09 Completed HYDROmorphone INJ [Dilaudid Inj] Med 09/08/25 10:47 Discontinued 0.5 mg IVP X1 ONE Late Tray Request Routine Oth 09/08/25 11:12 Active Vital Signs Vital signs: Vital Signs Temperature 98.2 F 09/08/25 08:07 Pulse Rate 87 12/17/25 08:07 Respiratory Rate 18 09/08/25 08:07 Blood Pressure 107/73 09/08/25 08:07 Pulse Oximetry (%) 99 09/08/25 08:07 Oxygen Delivery Method Room Air 09/08/25 08:07 Discharge Plan Plan Patient Disposition: HOME (Self Care) Patient condition on transfer: Stable Prescriptions/Referrals Prescriptions/Med Rec: Held clopidogrel 75 mg tablet 75 mg PO QDAY Qty: 30 0RF Hold Instructions: Resume on 09/13/25. Hold until you are seen by your PCP and resolution of bleeding tooth. Discontinued aspirin 81 mg capsule 81 mg PO QDAY Qty: 21 0RF No Action hydrocodone-acetaminophen 5-325 mg tablet 1 tab PO BID MDD 2 PRN (Reason: pain (scale score 7-10)) Qty: 7 0RF naloxone [Narcan] 4 mg/actuation spray,non-aerosol 4 mg intranasal Q2M Qty: 2 0RF Rx Instructions: spray 1 dose into ONE nostril; alternate nostrils w each dose until help arrives amlodipine 5 mg tablet 5 mg PO QDAY lisinopril-hydrochlorothiazide 20-12.5 mg tablet 1 tab PO BID metoprolol tartrate 50 mg tablet 50 mg PO .BID W/MEALS insulin degludec 100 unit/mL (3 mL) insulin pen 10 unit subcut QDAY Qty: 15 0RF (DME) pen needle, diabetic [1st Tier Unifine Pentips] 29 gauge x 1/2 needle See Rx Instructions .Route Qty: 100 0RF Rx Instructions: As directed (DME) FreeStyle Nga 3 Plus Sensor Device See Rx Instructions .Route Qty: 1 0RF Rx Instructions: As directed (DME) FreeStyle Nga 3 [place] Misc See Rx Instructions .Route Qty: 1 0RF Rx Instructions: As directed atorvastatin [Lipitor] 80 mg tablet 80 mg PO QPM Qty: 30 0RF insulin lispro [Humalog KwikPen Insulin] 100 unit/mL insulin pen 4 unit subcut TIDWMEAL Qty: 15 0RF metformin 500 mg tablet 500 mg PO BIDWMEAL Qty: 60 0RF (DME) blood-glucose meter [Accu-Chek Guide Glucose Meter] Misc See Rx Instructions .Route Qty: 1 0RF Rx Instructions: As directed (DME) Accu-Chek Guide test strips Strip See Rx Instructions .Route Qty: 100 0RF Rx Instructions: As directed (DME) lancets 17 gauge misc See Rx Instructions .Route Qty: 200 0RF Rx Instructions: 3 time a Day Problem List Clinical Impression: Bleeding post tooth extraction Patient/Caregiver Discharge Instructions Additional Instructions: Please stop taking aspirin 81 mg by mouth daily Hold Plavix 75 mg by mouth until you are seen by your primary care doctor Follow-up with your primary care doctor within 3 to 5 days and continue to follow-up with your neurologist If your symptoms worsen or if you develop worsening symptoms such as chest pain, shortness of breath and/or rebleeding please come back to the ER immediately Print Language: Iraqi Stand Alone Forms: [employer] Info., Patient Portal Info Letter MDM Narrative MDM hospital course (for use when minimal MDM required): HPI: 65-year-old female with past medical history of CVA with some mild, residual deficits insulin-dependent type 2 diabetes, hypertension presented to the ER on 09/08 for continuous bleeding noted from a recent tooth extraction (09/07). Patient apparently recently had a tooth extraction of the right upper and right lower molar with dentist. Of note, she presented to the ER on 09/08 with similar complaint at which point ER provider attempted txa followed by local lidocaine and epinephrine at this tooth extraction site with gauze placement and pressure. Patient was sent home but states that the bleeding resurfaced and has been uncontrollable with multiple gauzes being soaked in blood. Additionally patient was recently discharged in the hospital on 07/13/2025 for acute infarct of the right basal ganglia and right caudate nucleus; she was told to use DAPT (Plavix and aspirin for 21 days until switched to Plavix afterwards. She states that she continue taking DAPT since day of tooth extraction and was unaware of this. On examination, please refer to the physical exam above; patient presented normotensive, heart rate of 87, respiratory of 18, afebrile satting 99 on room air. Repeat H&H pending #Acute blood loss anemia secondary to tooth extraction #Uncontrollable bleeding On examination, patient appears to have a clot forming at the right upper third molar with some slight oozing Replaced gauze without any direct intervention at this time not to disrupt blood clot 1u prbc transfused Patient eating pureed meal comfortably and on re-examination, tooth extraction site looks like it is not oozing any longer with a firm clot present Plan: Will stop patient's aspirin and hold Plavix until bleeding stops and the patient is seen by PCP within the end of the week Patient is aware that if the bleeding resurfaces come back to the ER immediately Patient seen and assessed with attending Dr. Sindhu Gonsales, DO PGY-2 Internal Medicine - GME Medication Administration(s) Medication Administration History Discontinued Medications Hydromorphone HCl (Hydromorphone Inj 2 Mg/Ml Vial) 0.5 mg IVP X1 ONE Stop: 09/08/25 10:48 Last Admin: 09/08/25 12:38 Dose: Not Given Documented By: BARTOLOME Non-Admin Reason: Patient Refused
[2025-09-08 09:27] LABS: Hematocrit 24.5 % (36.0-46.0)
[2025-09-08 09:37] LABS: Hemoglobin 8.4 g/dL (12.0-16.0)
== END 2025-09-08 15:40 | disposition home or self-care (01) ==
PROVIDERS: Emergency Provider Emergency Medicine; PCP Family Medicine
DX: D62 Acute posthemorrhagic anemia (principal); K91.840 Postprocedural hemorrhage of a digestive system organ or structure following a digestive system procedure; Y84.9 Medical procedure, unspecified as the cause of abnormal reaction of the patient, or of later complication, without mention of misadventure at the time of the procedure
CPT/HCPCS: 36415; 36430; 85014; 85018; 86850; 86900; 86901; 86923; 99283; P9016